=== PATIENT | female | born 1945 | race Caucasian/White ===

== ENCOUNTER 2017-12-27 13:48 | Inpatient (IN) | payer MEDICARE ==
[~2017-12-27 13:48] MED LIST: AMIODARONE 50 MG/ML 3 ML VIAL IV ONE; DEXTROSE 5% IN WATER 50 ML BAG ONE; EPINEPHrine 10 ML SYRINGE (0.1 MG/ML) ONE
[2017-12-27] MEDS ORDERED: AMIODARONE 450 MG in DEXTROSE 5% IN WATER 250 ML IV ONE ×2 (13:53)
--- NOTE | 2017-12-27 14:02 | ED ---
General Adult HPI - General Stated complaint: cardiac arrest Time Seen by Provider: 12/27/17 13:48 Source: RN notes reviewed - History of Present Illness Initial comments: This is a 64-year-old female who presents emergency department is pretty 1 patient undergoing CPR. According to EMS the patient was a witnessed arrest when first responders got there they placed an AED on her and it shocked her twice when they arrived the patient was in V. fib they shocked her one more time gave 2 epis in route and 300 of amiodarone they continued CPR and bagging the patient. Patient arrived she was in V. fib. With CPR some progress and continuing to bag the patient. No other history is available this time. - Related Data Home Medications Medication Instructions Recorded Confirmed No Known Home Medications 12/27/17 12/27/17 Allergies Allergy/AdvReac Type Severity Reaction Status Date / Time No Known Allergies Allergy Unverified 12/27/17 14:32 Review of Systems ROS Statement: Those systems with pertinent positive or pertinent negative responses have been documented in the HPI. ROS Other: All systems not noted in ROS Statement are negative. General Exam - General Exam Comments Initial Comments: GENERAL: Patient is well-developed and well-nourished. She is unresponsive to verbal or painful stimuli CPR is in progress the patient is being bagged currently ENT: Neck is soft and supple. No significant lymphadenopathy is noted. Oropharynx is clear. Moist mucous membranes. EYES: The sclera were anicteric and conjunctiva were pink and moist. PULMONARY: Unlabored respirations. Good breath sounds bilaterally. No audible rales rhonchi or wheezing was noted. CARDIOVASCULAR: She has no pulses no heart sounds currently in the fifth ABDOMEN: Soft and nontender with normal bowel sounds. SKIN: Skin is clear with no lesions or rashes and otherwise unremarkable. NEUROLOGIC: Patient is unresponsive MUSCULOSKELETAL: Patient is not moving any extremities at this time PSYCHIATRIC: Unable to assess Course Vital Signs 12/27/17 12/27/17 12/27/17 13:59 14:04 14:09 Temperature Pulse Rate 68 76 98 Respiratory 12 24 24 Rate Blood Pressure 96/59 104/70 122/73 O2 Sat by Pulse 99 99 98 Oximetry 12/27/17 12/27/17 12/27/17 14:14 14:17 14:29 Temperature 98.1 F Pulse Rate 88 88 Respiratory 24 12 Rate Blood Pressure 126/74 118/59 O2 Sat by Pulse 99 98 Oximetry 12/27/17 14:30 Temperature Pulse Rate 87 Respiratory 12 Rate Blood Pressure 126/74 O2 Sat by Pulse 98 Oximetry Procedures - Intubation Time Out Performed: Yes Laryngoscope: Song Size: 3 ET Tube Size: 8 ET Tube Uncuffed: No Tube Secured Location: teeth Tube Placement Confirmation: visualized tube passing through cords, equal breath sounds bilaterally, no breath sounds over epigastrium, confirmation by capnometry Patient Tolerated Procedure: well Intubation Complications: none Medical Decision Making - Medical Decision Making EKG shows a wide QRS complex rhythm no P waves are noted at a rate of 105 bpm QRS is under an 80 QT interval 464 QTC is 613. There is significant elevation in that ST segment in precordial leads V1 through V3 I spoke with Dr. Thorpe and he wanted the cath team called in immediately and will be down to see the patient immediately Chest x-ray shows ET tube in good placement. Patient was taken up to the cardiac cath. - Lab Data Result diagrams: 12/27/17 13:54 12/27/17 13:54 Lab Results 12/27/17 12/27/17 12/27/17 Range/Units 13:54 13:54 13:54 WBC 7.1 (3.8-10.6) k/uL RBC 4.37 (3.80-5.40) m/uL Hgb 13.3 (11.4-16.0) gm/dL Hct 44.5 (34.0-46.0) % MCV 101.8 H (80.0-100.0) fL MCH 30.4 (25.0-35.0) pg MCHC 29.8 L (31.0-37.0) g/dL RDW 12.6 (11.5-15.5) % Plt Count 129 L (150-450) k/uL Neutrophils % (Manual) 21 % Lymphocytes % (Manual) 75 % Monocytes % (Manual) 3 % Eosinophils % (Manual) 1 % Neutrophils # (Manual) 1.49 (1.3-7.7) k/uL Lymphocytes # (Manual) 5.33 H (1.0-4.8) k/uL Monocytes # (Manual) 0.21 (0-1.0) k/uL Eosinophils # (Manual) 0.07 (0-0.7) k/uL Nucleated RBCs 0 (0-0) /100 WBC Manual Slide Review Performed Hypochromasia Marked Macrocytosis Slight PT (9.0-12.0) sec INR (<1.2) APTT (22.0-30.0) sec Sample Site ABG pH (7.35-7.45) ABG pCO2 (35-45) mmHg ABG pO2 (83-108) mmHg ABG HCO3 (21-25) mmol/L ABG Total CO2 (19-24) mmol/L ABG O2 Saturation (94-97) % ABG Base Excess mmol/L Haris Test FiO2 % Sodium 141 (137-145) mmol/L Potassium 3.4 L (3.5-5.1) mmol/L Chloride 110 H (98-107) mmol/L Carbon Dioxide 17 L (22-30) mmol/L Anion Gap 14 mmol/L BUN 12 (7-17) mg/dL Creatinine 0.80 (0.52-1.04) mg/dL Est GFR (CKD-EPI)AfAm 86 (>60 ml/min/1.73 sqM) Est GFR (CKD-EPI)NonAf 75 (>60 ml/min/1.73 sqM) Glucose 245 H (74-99) mg/dL POC Glucose (mg/dL) (75-99) mg/dL POC Glu [employer] ID Calcium 8.5 (8.4-10.2) mg/dL Magnesium 2.3 (1.6-2.3) mg/dL Total Bilirubin 0.7 (0.2-1.3) mg/dL AST 119 H (14-36) U/L ALT 139 H (9-52) U/L Alkaline Phosphatase 47 (38-126) U/L Total Creatine Kinase 45 (30-135) U/L CK-MB (CK-2) 1.1 (0.0-2.4) ng/mL CK-MB (CK-2) Rel Index 2.4 Troponin I 0.028 (0.000-0.034) ng/mL Total Protein 5.6 L (6.3-8.2) g/dL Albumin 3.2 L (3.5-5.0) g/dL 12/27/17 12/27/17 12/27/17 Range/Units 13:54 14:19 14:21 WBC (3.8-10.6) k/uL RBC (3.80-5.40) m/uL Hgb (11.4-16.0) gm/dL Hct (34.0-46.0) % MCV (80.0-100.0) fL MCH (25.0-35.0) pg MCHC (31.0-37.0) g/dL RDW (11.5-15.5) % Plt Count (150-450) k/uL Neutrophils % (Manual) % Lymphocytes % (Manual) % Monocytes % (Manual) % Eosinophils % (Manual) % Neutrophils # (Manual) (1.3-7.7) k/uL Lymphocytes # (Manual) (1.0-4.8) k/uL Monocytes # (Manual) (0-1.0) k/uL Eosinophils # (Manual) (0-0.7) k/uL Nucleated RBCs (0-0) /100 WBC Manual Slide Review Hypochromasia Macrocytosis PT 10.7 (9.0-12.0) sec INR 1.1 (<1.2) APTT 26.5 (22.0-30.0) sec Sample Site RT RADIAL ABG pH 7.18 L* (7.35-7.45) ABG pCO2 44 (35-45) mmHg ABG pO2 342 H (83-108) mmHg ABG HCO3 16 L (21-25) mmol/L ABG Total CO2 18 L (19-24) mmol/L ABG O2 Saturation 99.9 H (94-97) % ABG Base Excess -11.9 mmol/L Haris Test Yes FiO2 100 % Sodium (137-145) mmol/L Potassium (3.5-5.1) mmol/L Chloride (98-107) mmol/L Carbon Dioxide (22-30) mmol/L Anion Gap mmol/L BUN (7-17) mg/dL Creatinine (0.52-1.04) mg/dL Est GFR (CKD-EPI)AfAm (>60 ml/min/1.73 sqM) Est GFR (CKD-EPI)NonAf (>60 ml/min/1.73 sqM) Glucose (74-99) mg/dL POC Glucose (mg/dL) 224 H (75-99) mg/dL POC Glu [employer] ID Chen, Mikala Calcium (8.4-10.2) mg/dL Magnesium (1.6-2.3) mg/dL Total Bilirubin (0.2-1.3) mg/dL AST (14-36) U/L ALT (9-52) U/L Alkaline Phosphatase (38-126) U/L Total Creatine Kinase (30-135) U/L CK-MB (CK-2) (0.0-2.4) ng/mL CK-MB (CK-2) Rel Index Troponin I (0.000-0.034) ng/mL Total Protein (6.3-8.2) g/dL Albumin (3.5-5.0) g/dL Critical Care Time Critical Care Time: Yes Total Critical Care Time: 35 Disposition Clinical Impression: Cardiac arrest, Ventricular fibrillation Disposition: ADMITTED IP TO THIS [facility] Time of Disposition: 14:47
[2017-12-27] MEDS ORDERED: ASPIRIN 300 MG SUPP RECTAL STA (14:13)
[2017-12-27 14:18] LABS: HCT 44.5 % (34.0-46.0); HGB 13.3 gm/dL (11.4-16.0); Hypochromasia Marked; MCH 30.4 pg (25.0-35.0); MCHC 29.8 g/dL (31.0-37.0); MCV 101.8 fL (80.0-100.0); Macrocytosis Slight; Mean Platelet Volume 7.8; Platelet Count 129 k/uL (150-450); RBC 4.37 m/uL (3.80-5.40); RDW 12.6 % (11.5-15.5); WBC 7.1 k/uL (3.8-10.6)
[2017-12-27 14:25] LABS: INR 1.1 (<1.2); Partial Thromboplastin Time 26.5 sec (22.0-30.0); Prothrombin Time 10.7 sec (9.0-12.0)
--- NOTE | 2017-12-27 14:26 | XR ---
EXAMINATION TYPE: XR chest 1V portable DATE OF EXAM: 12/27/2017 HISTORY: Shortness of breath. COMPARISON: 10/27/2017 TECHNIQUE: Single view of the chest is submitted. FINDINGS: Endotracheal tube is well-positioned. Tip of the NG tube is at the GE junction and should be advanced . Demonstrated are scattered senescent parenchymal change. There is pulmonary venous congestion with upper lobe patchy infiltrate which may reflect early change s of acute pulmonary edema. The heart is enlarged. Hilar and mediastinal structures are within normal limits. Degenerative changes are seen of the dorsal spine. IMPRESSION: 1. There is pulmonary venous congestion with upper lobe patchy infiltrate which may reflect early ch anges of acute pulmonary edema. The heart is enlarged. 2. Endotracheal tube and NG tube as discussed.
[2017-12-27 14:27] LABS: Glucose,Whole Blood 224 mg/dL (75-99)
[2017-12-27 14:29] LABS: ABG Base Excess -11.9 mmol/L; ABG HCO3 16 mmol/L (21-25); ABG Oxygen Saturation 99.9 % (94-97); ABG PCO2 44 mmHg (35-45); ABG PO2 342 mmHg (83-108); ABG TCO2 18 mmol/L (19-24)
[2017-12-27 14:31] LABS: Albumin 3.2 g/dL (3.5-5.0); Calcium 8.5 mg/dL (8.4-10.2); Magnesium 2.3 mg/dL (1.6-2.3); Potassium 3.4 mmol/L (3.5-5.1); Total Bilirubin 0.7 mg/dL (0.2-1.3); Total Protein 5.6 g/dL (6.3-8.2)
[2017-12-27 14:45] LABS: Creatine Kinase MB 1.1 ng/mL (0.0-2.4); Troponin I 0.028 ng/mL (0.000-0.034)
[2017-12-27 14:47] LABS: ABG PH 7.18 (7.35-7.45)
[2017-12-27] MEDS ORDERED: LIDOCAINE 1% INJ 10MG/ML (20 ML MDV) SQ ONE (14:49)
[2017-12-27 15:00] LABS: Eosinophils # (M) 0.07 k/uL (0-0.7); Lymphocytes # (M) 5.33 k/uL (1.0-4.8); Monocytes # (M) 0.21 k/uL (0-1.0); Neutrophils # (M) 1.49 k/uL (1.3-7.7); Neutrophils % (M) 21 %; Nucleated Red Blood Cells 0 /100 WBC (0-0); Total Cells Counted 100
[2017-12-27] MEDS ORDERED: IOPAMIDOL-370 125ML BTL INJ ONE (15:07)
[2017-12-27] MEDS ORDERED: IOPAMIDOL-370 50ML BTL INJ ONE (15:08)
[2017-12-27] MEDS ORDERED: NITROGLYCERIN SL TABS 0.4 MG TAB SUBLINGUAL PRN (15:10)
[2017-12-27] MEDS ORDERED: SODIUM CHLORIDE 0.9% 500 ML IV STA (15:10)
[2017-12-27] MEDS ORDERED: POTASSIUM CHLORIDE 20 MEQ in WATER FOR INJECTION 1 100ML.BAG IVPB STA (15:18)
[2017-12-27] MEDS ORDERED: IV FLUID CONTINUATION 1,000 ML IV ONE (15:21)
--- NOTE | 2017-12-27 15:30 | P.CRDCN ---
History of Present Illness Consult date: 12/27/17 History of present illness: This is a 72-year-old female was brought to the emergency room after a witnessed cardiac arrest. She was walking with her and apparently she collapsed. Paramedics were called who initiated CPR. Initially patient was asystolic and subsequently developed ventricular fibrillation requiring shocks. In the emergency room patient had another bout of V. fib requiring shock. Subsequently she was intubated. Her EKG showed evidence of left bundle-branch block pattern. It was advised her that patient have cardiac catheterization to rule out acute myocardial infarction. Patient was brought to the lab intubated and sedated. The time of my examination patient is unresponsive. Pupils are normal and symptoms sluggish and reactive. Patient is had some twitchy movements. Lab work showed normal hemoglobin. Potassium was low at 3.4. ABG showed acidosis. Chest x-ray showed a possible pulmonary edema versus pneumonia Review of Systems Not obtained Past Medical History Past Medical History: Unable to Obtain History of Any Multi-Drug Resistant Organisms: Unobtainable Past Surgical History: Unable to Obtain Past Psychological History: Unable to Obtain Smoking Status: Unknown if ever smoked Past Alcohol Use History: Unable to Obtain Past Drug Use History: None Reported Medications and Allergies Home Medications Medication Instructions Recorded Confirmed Type No Known Home Medications 12/27/17 12/27/17 History Allergies Allergy/AdvReac Type Severity Reaction Status Date / Time No Known Allergies Allergy Unverified 12/27/17 14:32 Physical Exam Vitals: Vital Signs Temp Pulse Resp BP Pulse Ox 12/27/17 14:30 87 12 126/74 98 12/27/17 14:29 88 12 118/59 98 12/27/17 14:17 98.1 F 12/27/17 14:14 88 24 126/74 99 12/27/17 14:09 98 24 122/73 98 12/27/17 14:04 76 24 104/70 99 12/27/17 13:59 68 12 96/59 99 Intake and Output 12/27/17 12/27/17 12/27/17 06:59 14:59 22:59 Intake Total 100 Balance 100 Intake: IV 100 Other: Weight 95.254 kg Patient is intubated. Not responsive. Pupils are normal with sluggish reaction. Neck is supple with mildly engorged veins. Heart: Distant heart sounds. No Sigmund murmurs appreciated. Lungs: Diminished breath sounds with some rhonchi Abdomen: Soft. Extremities: No cyanosis, clubbing or edema Results 12/27/17 13:54 12/27/17 13:54 Cardiac Enzymes 12/27/17 12/27/17 Range/Units 13:54 13:54 AST 119 H (14-36) U/L CK-MB (CK-2) 1.1 (0.0-2.4) ng/mL Troponin I 0.028 (0.000-0.034) ng/mL Coagulation 12/27/17 Range/Units 13:54 PT 10.7 (9.0-12.0) sec APTT 26.5 (22.0-30.0) sec CBC 12/27/17 Range/Units 13:54 WBC 7.1 (3.8-10.6) k/uL RBC 4.37 (3.80-5.40) m/uL Hgb 13.3 (11.4-16.0) gm/dL Hct 44.5 (34.0-46.0) % Plt Count 129 L (150-450) k/uL Comprehensive Metabolic Panel 12/27/17 Range/Units 13:54 Sodium 141 (137-145) mmol/L Potassium 3.4 L (3.5-5.1) mmol/L Chloride 110 H (98-107) mmol/L Carbon Dioxide 17 L (22-30) mmol/L BUN 12 (7-17) mg/dL Creatinine 0.80 (0.52-1.04) mg/dL Glucose 245 H (74-99) mg/dL Calcium 8.5 (8.4-10.2) mg/dL AST 119 H (14-36) U/L ALT 139 H (9-52) U/L Alkaline Phosphatase 47 (38-126) U/L Total Protein 5.6 L (6.3-8.2) g/dL Albumin 3.2 L (3.5-5.0) g/dL Current Medications Generic Name Dose Route Start Last Admin Trade Name Freq PRN Reason Stop Dose Admin Amiodarone HCl 450 mg/ 259 mls @ 34.53 mls/hr 12/27/17 13:53 12/27/17 14:13 Dextrose/Water IV 12/27/17 21:23 1 mg/min .Q7H31M ONE 34.53 mls/hr Administration 1 MG/MIN Sodium Chloride 500 mls @ 50 mls/hr 12/27/17 15:10 Saline 0.9% IV 12/28/17 01:09 .Q10H STA Magnesium Sulfate/Dextrose 1 100 mls @ 100 mls/hr 12/27/17 15:30 gm/ IV Solution IVPB 12/27/17 17:29 Q1H JUAN C Potassium Chloride 20 meq/ IV 100 mls @ 50 mls/hr 12/27/17 15:18 Solution IVPB 12/27/17 17:17 ONCE STA Nitroglycerin 0.4 mg 12/27/17 15:10 Nitrostat SUBLINGUAL Q5M PRN Chest Pain Intake and Output 12/27/17 12/27/17 12/27/17 06:59 14:59 22:59 Intake Total 100 Balance 100 Intake: IV 100 Other: Weight 95.254 kg Patient Weight 12/28/17 06:59 Weight 95.254 kg 12/27/17 13:54 12/27/17 13:54 EKG Interpretations (text) Sinus rhythm with left bundle branch block Assessment and Plan (1) Cardiomyopathy Current Visit: Yes Status: Acute Code(s): I42.9 - CARDIOMYOPATHY, UNSPECIFIED SNOMED Code(s): 89688770 (2) Cardiac arrest Current Visit: Yes Status: Acute Code(s): I46.9 - CARDIAC ARREST, CAUSE UNSPECIFIED SNOMED Code(s): 765412648 (3) Ventricular fibrillation Current Visit: Yes Status: Acute Code(s): I49.01 - VENTRICULAR FIBRILLATION SNOMED Code(s): 28526128 (4) Left bundle branch block Current Visit: Yes Status: Acute Code(s): I44.7 - LEFT BUNDLE-BRANCH BLOCK, UNSPECIFIED SNOMED Code(s): 41327658 Plan: Patient will be evaluated with cardiac catheterization. Meanwhile we'll continue with IV amiodarone. We'll give her magnesium and potassium supplement
--- NOTE | 2017-12-27 15:33 | P.CARDCATH ---
Date of Procedure: 12/27/17 Preoperative Diagnosis: Cardiac arrest, ventricular fibrillation Postoperative Diagnosis: Normal coronary arteries, cardiomyopathy Procedure(s) Performed: Left heart catheterization with left ventriculography Description of Procedure: HISTORY: This is a 72-year-old female was brought to the emergency room with witnessed cardiac arrest and ventricular fibrillation. EKG showed left bundle- branch block pattern. CONSENT:I have discussed the risks, benefits and alternative therapies for the above-mentioned procedure and for both sedation/analgesia as well as necessary blood product administration, if indicated, as they pertain to this patient. The patient has indicated understanding and acceptance of the risks and procedures discussed. PROCEDURE: Patient was brought to the lab in a fasting state. Patient was given some IV sedation. The right groin is infiltrated with lidocaine and right femoral artery was entered using Seldinger technique. A 6-Armenian catheter was left in place and selective coronary arteriography and left ventriculography was performed. Patient tolerated the procedure well. Femoral angiogram was performed and Angio-Seal was applied for hemostasis. No immediate complications were noted and patient was transferred to [facility] in a stable condition Conscious Sedation: Versed 0mg Fentanyl 0g Duration 17minutes HEMODYNAMICS: SELECTIVE CORONARY ARTERIOGRAPHY: LEFT MAIN: Normal length and patent without any disease THE LEFT ANTERIOR DESCENDING CORONARY ARTERY: Good caliber vessel free of any occlusive disease THE LEFT CIRCUMFLEX AND IS CORONARY ARTERY:. Good caliber vessel and codominant. Free of occlusive disease THE RIGHT CORONARY ARTERY:. Codominant vessel free of occlusive disease. Large in caliber LEFT VENTRICULOGRAPHY: Showed dilated left ventricle with a severe generalized hypokinesia. His ejection fraction is 25-30% FINAL IMPRESSION: Nonischemic cardio myopathy. Cardiac arrest. Ventricular fibrillation PLAN: Continue with IV amiodarone. Supplement with potassium and magnesium. Initiate beta blockers and also MANUEL inhibitor along with Aldactone PROGNOSIS: poor
[2017-12-27 15:54] LABS: Glucose,Whole Blood 146 mg/dL (75-99)
[2017-12-27] MEDS ORDERED: Potassium Replacement Protocol 1 EACH MISC MISCELLANE PRN (15:58)
--- NOTE | 2017-12-27 16:34 | P.CNPUL ---
History of Present Illness Consult date: 12/27/17 Requesting physician: Angelica Paul Reason for consult: other (Acute respiratory failure secondary to cardiac arrest ) Chief complaint: Cardiac arrest, witnessed History of present illness: This is a 72-year-old female brought into the emergency room by EMS, patient was walking with her , and she had a sudden cardiac arrest, patient collapsed. EMS noted ventricular fibrillation on arrival, down time is over 25 minutes. Patient was brought into the ER, and her EKG showed a left bundle branch block pattern. Seen by cardiology on consultation, and she underwent immediate cardiac catheterization. Patient was found to have normal coronary circulation, but poor LV function, ejection fraction of 20-30%. Transferred to the ICU, on mechanical ventilation, unresponsive, pupils are pinpoint, CT of the brain is pending, neurologic consultation is pending. Patient is hemodynamically stable, she is in normal sinus rhythm, and she is not requiring any pressors at this point. However she is on amiodarone as recommended by cardiology. Ventilator settings were reviewed and adjusted, cut down her FiO2 to 50%, she is on tidal volume of 450. PEEP of 5. ABG earlier today showed a pO2 of 342 pCO2 of 44 pH of 7.18. Another ABG is pending. CBC is relatively normal. Electrolytes were noted to be relatively normal however the bicarb is 17 patient has mild anion gap metabolic acidosis with anion gap of 14. Troponin was noted to be at 0.028. Renal profile is normal with a BUN of 12 and creatinine of 0.80. No family members available at bedside. Chart was reviewed chest x-ray was ordered however she had an earlier chest x-ray when she was intubated showing pulmonary vascular congestion, and upper lobe patchy infiltrate questionable pulmonary edema or true infiltrate Review of Systems ROS unobtainable: due to endotracheal tube Past Medical History Past Medical History: Unable to Obtain History of Any Multi-Drug Resistant Organisms: Unobtainable Past Surgical History: Unable to Obtain Past Psychological History: Unable to Obtain Smoking Status: Unknown if ever smoked Past Alcohol Use History: Unable to Obtain Past Drug Use History: None Reported Medications and Allergies Home Medications Medication Instructions Recorded Confirmed Type No Known Home Medications 12/27/17 12/27/17 History Allergies Allergy/AdvReac Type Severity Reaction Status Date / Time No Known Allergies Allergy Unverified 12/27/17 14:32 Physical Exam Vitals: Vital Signs Temp Pulse Resp BP Pulse Ox 12/27/17 14:30 87 12 126/74 98 12/27/17 14:29 88 12 118/59 98 12/27/17 14:17 98.1 F 12/27/17 14:14 88 24 126/74 99 12/27/17 14:09 98 24 122/73 98 12/27/17 14:04 76 24 104/70 99 12/27/17 13:59 68 12 96/59 99 Intake and Output 12/27/17 12/27/17 12/27/17 06:59 14:59 22:59 Intake Total 100 Balance 100 Intake: IV 100 Other: Weight 95.254 kg Physical Exam revealed a 72-year-old female, obese, on mechanical ventilation, unresponsive to any stimuli. Pupils are pinpoint. Head: Atraumatic, normocephalic, endotracheal tube is intact, orogastric tube is intact. HEENT:[Neck is supple.] [No neck masses.] [No thyromegaly.] [No JVD.] Pupils are pinpoint, no icterus. Chest: [Crackles and rhonchi noted bilaterally. Symmetrical chest expansion bilaterally.] Cardiac Exam: [Normal S1 and S2, no S3 gallop, no murmur.] Abdomen: [Soft, nontender, no megaly, no rebound, no guarding, normal bowel sounds.] Extremities: [No clubbing, no edema, no cyanosis.] Neurological Exam: Unresponsive to any stimuli. Pupils are pinpoint. Lymphatics: No lymphadenopathy. Psychiatric: Cannot be assessed. Results - Laboratory Findings CBC and BMP: 12/27/17 13:54 12/27/17 13:54 ABG ABG pH 7.18 (7.35-7.45) L* 12/27/17 14:19 ABG pCO2 44 mmHg (35-45) 12/27/17 14:19 ABG pO2 342 mmHg (83-108) H 12/27/17 14:19 ABG O2 Saturation 99.9 % (94-97) H 12/27/17 14:19 PT/INR, D-dimer PT 10.7 sec (9.0-12.0) 12/27/17 13:54 INR 1.1 (<1.2) 12/27/17 13:54 Abnormal lab findings: Abnormal Labs 12/27/17 12/27/17 12/27/17 13:54 13:54 14:19 MCV 101.8 H MCHC 29.8 L Plt Count 129 L Lymphocytes # (Manual) 5.33 H ABG pH 7.18 L* ABG pO2 342 H ABG HCO3 16 L ABG Total CO2 18 L ABG O2 Saturation 99.9 H Potassium 3.4 L Chloride 110 H Carbon Dioxide 17 L Glucose 245 H POC Glucose (mg/dL) AST 119 H ALT 139 H Total Protein 5.6 L Albumin 3.2 L 12/27/17 12/27/17 14:21 15:53 MCV MCHC Plt Count Lymphocytes # (Manual) ABG pH ABG pO2 ABG HCO3 ABG Total CO2 ABG O2 Saturation Potassium Chloride Carbon Dioxide Glucose POC Glucose (mg/dL) 224 H 146 H AST ALT Total Protein Albumin - Diagnostic Findings Chest x-ray: image reviewed (Evidence of pulmonary venous congestion.) Assessment and Plan Assessment: Impression: 1 acute hypoxic respiratory failure secondary to cardiac arrest, most likely secondary to cardiac arrhythmia, ventricular fibrillation. 2 cardiac arrest 3 nonischemic cardiomyopathy as noted on her cardiac workup. 4 suspect anoxic brain injury, patient had prolonged downtime during CPR and resuscitation. 5 acute anion gap metabolic acidosis secondary to cardiogenic shock. Recommendation: Continue present supportive care measures. Continue GI and DVT prophylaxis. Consider starting feeding in a.m. Initiated neurological consultation. Monitor neurological status hourly. CT of the brain is pending. We will empirically placed on antibiotics for potential aspiration. We'll continue to follow closely. Prognosis is extremely poor and guarded. Time with Patient: Greater than 30
--- NOTE | 2017-12-27 16:37 | XR ---
EXAMINATION TYPE: XR chest 1V portable DATE OF EXAM: 12/27/2017 COMPARISON: Prior chest x-ray 12/27/2017 HISTORY: Status post intubation, abnormal chest x-ray TECHNIQUE: Single frontal view of the chest is obtained. FINDINGS: Endotracheal tube and NG tube are overlying appropriate positions, the side port of the NG tube is within the distal thoracic esophagus however. The heart remains enlarged. Patient is rotated . No evident pneumothorax. There is retrocardiac density suspected. There may be some improvement in aeration as compared to prior exam. IMPRESSION: NG tube shows the distal side-port above the level of the hemidiaphragm. Report relayed to the intensive care unit staff at the time of interpretation. Rotated exam. Cardiomegaly. There may be some improvement in airspace disease.
[2017-12-27] MEDS: POTASSIUM BICARBONATE/CIT AC 20 MEQ TABLET.EFF NG-TUBE SCH ×2 (17:03→18:11)
[2017-12-27 17:07] LABS: ABG Base Excess -5.7 mmol/L; ABG HCO3 21 mmol/L (21-25); ABG Oxygen Saturation 98.2 % (94-97); ABG PCO2 43 mmHg (35-45); ABG PO2 109 mmHg (83-108); ABG TCO2 22 mmol/L (19-24)
[2017-12-27] MEDS: ENOXAPARIN 40 MG/0.4 ML SYRINGE SQ SCH (17:10)
[2017-12-27] MEDS: PANTOPRAZOLE 40 MG/10 ML VIAL IVP SCH (17:10)
--- NOTE | 2017-12-27 17:15 | OP ---
OPERATIVE REPORT PROCEDURE: Placement of a left radial arterial line. PREOPERATIVE DIAGNOSIS: Acute cardiac arrest and respiratory failure. POSTOPERATIVE DIAGNOSIS: Acute cardiac arrest and respiratory failure. ANESTHESIA: None deployed. PROCEDURE: Patient was placed in a supine position. The left wrist was prepared in a sterile fashion and drapes were applied. The left radial artery was palpated easily, cannulated easily, and a guidewire was placed. A radial Cook's catheter was placed over the guidewire, and the guidewire was removed. Good blood flow and good waveform were noted. No evidence of any immediate complications. Line was secured using 3.0 silk sutures. MMODL / IJN: [id number] /
[2017-12-27] MEDS: PROPOFOL 1,000 MG in EMPTY BAG 1 BAG IV SCH ×2 (17:30→22:41)
--- NOTE | 2017-12-27 18:09 | CT ---
EXAMINATION TYPE: CT brain wo con DATE OF EXAM: 12/27/2017 COMPARISON: None HISTORY: Altered mental status. CT DLP: 1302 mGycm Automated exposure control for dose reduction was used. FINDINGS: Exam is limited by motion to some extent. Ventricles of normal size. There is no mass effect nor midl ine shift. There is no sign of intracranial hemorrhage. The calvarium is intact. IMPRESSION: NEGATIVE CT SCAN OF THE BRAIN.
[2017-12-27] MEDS ORDERED: ARTIFICIAL TEARS OINTMENT 3.5 GM TUBE BOTH EYES PRN (18:46)
[2017-12-27] MEDS ORDERED: BISACODYL 10 MG SUPP RECTAL PRN (18:46)
[2017-12-27] MEDS ORDERED: NALOXONE 0.4 MG/ML 1 ML VIAL IV PRN (18:46)
[2017-12-27] MEDS ORDERED: IPRATROPIUM-ALBUTEROL 3 ML NEB INHALATION PRN (18:46)
[2017-12-27] MEDS ORDERED: NOREPINEPHRINE 4 MG in SODIUM CHLORIDE 0.9% 250 ML IV SCH (19:00)
[2017-12-27] MEDS: IPRATROPIUM-ALBUTEROL 3 ML NEB INHALATION SCH ×2 (19:22→23:39)
[2017-12-27 20:16] LABS: Glucose,Whole Blood 150 mg/dL (75-99)
[2017-12-27] MEDS: MAGNESIUM SULFATE-D5W PMX 1 GM in DEXTROSE/WATER 1 100ML.BAG IVPB SCH (20:33)
[2017-12-27] MEDS: CHLORHEXIDINE GLUCONATE 15 ML CUP MUCOUS MEM SCH (20:40)
[2017-12-27] MEDS: METOPROLOL TARTRATE 5 MG/5 ML VIAL IVP SCH (20:40)
[2017-12-27] MEDS: INSULIN ASPART 100 UNIT/ML 1 ML 10 ML VIAL SQ SCH (20:41)
[2017-12-27] MEDS: PIPERACILLIN-TAZOBACTAM 3.375 GM in DEXTROSE/WATER 1 50ML.BAG IVPB SCH (20:41)
--- NOTE | 2017-12-27 21:20 | CONS ---
CONSULTATION DATE OF CONSULTATION: 12/27/2017. CHIEF COMPLAINT: Anoxic brain injury. HISTORY OF PRESENT ILLNESS: The patient is a 72-year-old, female, who was being evaluated by the neurology service per the request of Dr. Paul for anoxic brain injury. The patient had a witnessed cardiac arrest by her . According to the chart, the patient was walking with her when she suddenly collapsed to the ground. EMS was called and when they arrived to the seen, the patient was found to be in ventricular fibrillation. Down time was approximately 25 minutes. CPR was started by EMS and the patient was transferred to [facility] Emergency room. The patient was intubated. A stat CT scan of the brain was done, which showed no acute intracranial abnormalities. Her CBC was normal except for mild thrombocytopenia at 129,000. Her comprehensive metabolic profile showed hyperglycemia at 245, hypokalemia at 3.4, hepatic insufficiency with an AST of 119 and ALT of 139. Her cardiac enzymes were negative. Cardiology was consulted and the heart cath was done, which showed no significant coronary artery stenosis, but there was evidence of poor left ventricular function with an ejection fraction of 20-30 percent. The patient was admitted to the intensive care unit where she remains unresponsive on mechanical ventilation. No sedation is given at the time of my evaluation. No seizure-like activity has been described. PAST MEDICAL HISTORY: Unable to obtain. SOCIAL HISTORY: Unable to obtain. FAMILY HISTORY: Unable to obtain. HOME MEDICATIONS: Unknown. ALLERGIES: No known drug allergies according to the chart. REVIEW OF SYSTEMS: Unable to obtain, as the patient is unresponsive. PHYSICAL EXAM: Vital signs show a temperature of 98.1, pulse 87, respiration 12, blood pressure 126/74. GENERAL APPEARANCE: The patient is an elderly female, who is intubated and unresponsive to verbal stimuli. HEENT: Normocephalic, atraumatic, no obvious facial asymmetry is seen. Endotracheal tube is intact. Neck is supple with no masses felt. CARDIOVASCULAR: Regular rate and rhythm. ABDOMEN: Nontender nondistended. Extremities showed trace edema with no clubbing seen. Neurological exam: The patient is unresponsive to verbal stimuli. She occasionally withdraws her upper extremities to painful stimuli but on other occasions does not. Plantar reflex showed silent toes bilaterally. No ankle clonus is seen. Brainstem reflexes showed sluggish pupils bilaterally and a positive gag reflex. There is an absent oculocephalic reflex and corneal reflex. No seizure-like activity is seen. IMPRESSION: 1. Anoxic brain injury. 2. Cardiac arrest. 3. Unresponsiveness. RECOMMENDATION: The patient did have a witnessed the collapse and cardiac arrest and a down time of approximately 25 minutes was documented. She is on no sedation at this time and continues to be unresponsive. Her neurological examination is significant and there are concerns for severe anoxic brain injury. Her initial CT scan of the brain showed no acute findings. An EEG will be ordered. We will look for any significant neurological improvement over the next 24-48 hours, although given her advanced age and down time, there is only a slight chance of this occurring. Continue supportive care. Continue neuro checks. I will continue to follow with you. Further recommendations to follow. Thank you for allowing me to participate in the care of your patient. If you have any questions, please feel free to contact me. Please send a copy of this dictation to Dr. Paul. JARRELL / TENZIN: [id number] /
[2017-12-27] MEDS ORDERED: AMIODARONE 450 MG in DEXTROSE 5% IN WATER 250 ML IV SCH ×2 (22:15)
[2017-12-27] MEDS ORDERED: POTASSIUM BICARBONATE/CIT AC 20 MEQ TABLET.EFF NG-TUBE SCH (23:00)
[2017-12-28 00:07] LABS: Glucose,Whole Blood 132 mg/dL (75-99)
[2017-12-28] MEDS: INSULIN ASPART 100 UNIT/ML 1 ML 10 ML VIAL SQ SCH ×5 (00:10→18:19)
[2017-12-28 01:11] LABS: Appearance,Urine Turbid (Clear); Bilirubin,Urine Negative (Negative); Blood,Urine Small (Negative); Color,Urine Yellow; Glucose,Urine (UA) Negative (Negative); Ketones,Urine Negative (Negative); Leukocyte Esterase,Urine Trace (Negative); Mucus,Urine Rare /hpf; Nitrite,Urine Negative (Negative); PH, Urine 5.5 (5.0-8.0); Protein,Urine Negative (Negative); RBC,Urine 24 /hpf (0-5); Specific Gravity,Urine 1.033 (1.001-1.035); Uric Acid Crystals,Urine Many /hpf; Urobilinogen,Urine <2.0 mg/dL (<2.0); WBC,Urine 9 /hpf (0-5)
[2017-12-28] MEDS: IPRATROPIUM-ALBUTEROL 3 ML NEB INHALATION SCH ×6 (03:20→23:32)
[2017-12-28 04:44] LABS: Glucose,Whole Blood 137 mg/dL (75-99)
[2017-12-28] MEDS: PROPOFOL 1,000 MG in EMPTY BAG 1 BAG IV SCH (04:49)
[2017-12-28 04:56] LABS: Mean Platelet Volume 7.3; RDW 12.8 % (11.5-15.5)
[2017-12-28 05:03] LABS: Basophils % (A) 0 %; Eosinophils % (A) 0 %; HCT 39.8 % (34.0-46.0); HGB 12.8 gm/dL (11.4-16.0); Lymphocytes # (A) 0.7 k/uL (1.0-4.8); Lymphocytes % (A) 8 %; MCH 30.2 pg (25.0-35.0); Monocytes # (A) 0.5 k/uL (0-1.0); Monocytes % (A) 6 %; Neutrophils # (A) 7.6 k/uL (1.3-7.7); Neutrophils % (A) 85 %; Platelet Count 124 k/uL (150-450); RBC 4.22 m/uL (3.80-5.40); WBC 8.9 k/uL (3.8-10.6)
[2017-12-28 05:08] LABS: MCV 94.4 fL (80.0-100.0)
[2017-12-28 05:10] LABS: Anion Gap 7 mmol/L; Blood Urea Nitrogen 18 mg/dL (7-17); Calcium 8.7 mg/dL (8.4-10.2); Carbon Dioxide 21 mmol/L (22-30); Chloride 109 mmol/L (98-107); Glucose 134 mg/dL (74-99); Magnesium 1.8 mg/dL (1.6-2.3); Phosphorus 3.8 mg/dL (2.5-4.5); Potassium 3.7 mmol/L (3.5-5.1); Sodium 137 mmol/L (137-145)
[2017-12-28] MEDS ORDERED: POTASSIUM BICARBONATE/CIT AC 20 MEQ TABLET.EFF NG-TUBE SCH (07:00)
[2017-12-28] MEDS: MAGNESIUM SULFATE-D5W PMX 1 GM in DEXTROSE/WATER 1 100ML.BAG IVPB SCH ×2 (07:16→09:02)
[2017-12-28 07:20] LABS: ABG Base Excess -2.1 mmol/L; ABG HCO3 22 mmol/L (21-25); ABG Oxygen Saturation 96.5 % (94-97); ABG PCO2 31 mmHg (35-45); ABG PH 7.45 (7.35-7.45); ABG PO2 77 mmHg (83-108); ABG TCO2 23 mmol/L (19-24)
[2017-12-28 08:06] LABS: Glucose,Whole Blood 130 mg/dL (75-99)
--- NOTE | 2017-12-28 08:48 | XR ---
EXAMINATION TYPE: XR chest 1V portable DATE OF EXAM: 12/28/2017 COMPARISON: 12/27/2017 HISTORY: ET tube TECHNIQUE: Single frontal view of the chest is obtained. FINDINGS: ET is stable. NG tube is been advanced with sidehole overlying the gastric body or fundus. Subsegmental consolidation in both lung bases with limited inspiration. Heart remains enlarged. No p neumothorax. IMPRESSION: 1. NG tube is been advanced with sidehole overlying the gastric fundus. 2. Persistent bilateral subsegmental atelectasis or infiltrate.
[2017-12-28] MEDS: PANTOPRAZOLE 40 MG/10 ML VIAL IVP SCH (09:03)
[2017-12-28] MEDS: ENOXAPARIN 40 MG/0.4 ML SYRINGE SQ SCH (09:03)
[2017-12-28] MEDS: CHLORHEXIDINE GLUCONATE 15 ML CUP MUCOUS MEM SCH ×2 (09:03→21:21)
[2017-12-28] MEDS: METOPROLOL TARTRATE 5 MG/5 ML VIAL IVP SCH (09:03)
[2017-12-28] MEDS: PIPERACILLIN-TAZOBACTAM 3.375 GM in DEXTROSE/WATER 1 50ML.BAG IVPB SCH ×2 (09:42→17:24)
[2017-12-28 09:47] LABS: ALT 168 U/L (9-52); AST 125 U/L (14-36)
--- NOTE | 2017-12-28 10:10 | P.PN ---
Subjective Progress Note Date: 12/28/17 This is a 72-year-old female who was admitted following witnessed cardiac arrest. Patient required shocks for ventricular fibrillation. Cardiac catheterization revealed normal coronary arteries with severely impaired LV function. Suggestive of cardiomyopathy. Patient has been maintained on IV amiodarone. Hasn't had any cardiac arrhythmias of significance since admission. Patient's urine output has been fair. Renal functions are stable. Hemoglobin is stable. Liver and the vessels are slightly elevated on admission. Repeat testing is being done. It appears that patient may have had a long down time. Severe anoxic brain injury suspected. Neurology is following. Pupils are slightly reactive. No purposeful movements. Patient is maintaining sinus rhythm. Patient is going to have an EEG and further neurological evaluation. Meanwhile we will continue with by mouth amiodarone and also beta trina. I will add MANUEL inhibitor and also Aldactone. Prognosis is poor Objective - Vital Signs Vital signs: Vital Signs Temp 99.1 F 12/28/17 08:00 Pulse 84 12/28/17 09:15 Resp 30 H 12/28/17 09:15 BP 120/55 12/27/17 17:15 Pulse Ox 93 L 12/28/17 09:15 Intake & Output 12/27/17 12/28/17 12/28/17 18:59 06:59 18:59 Intake Total 450.273 5650.907 512.767 Output Total 425 890 175 Balance -37.430 207.907 337.767 Weight 95.254 kg 96.2 kg Intake: IV 259 891.2 409.1 Amiodarone 450 mg In 200.2 50.1 Dextrose 5% in Water 250 ml @ 0.5 MG/MIN 16.66 mls /hr IV .Q15H1M [facility] Rx#: [id number] Magnesium Sulfate-D5w Pmx 200 1 gm In Dextrose/Water 1 100ml.bag @ 100 mls/hr IVPB Q1H [facility] Rx#: [id number] Normal Saline 150 100 Piperacillin-Tazobactam 3 75.0 .375 gm In Dextrose/Water 1 50ml.bag @ 12.5 mls/hr IVPB Q12HR [facility] C Rx#: [id number] Pressure Bag 9 36 9 Sodium Chloride 0.9% 500 480 150 ml @ 50 mls/hr IV .Q10H STA Rx#:[id number] Intake, IV Titration 8.570 176.707 73.667 Amount Propofol 1,000 mg In 8.570 176.707 73.667 Empty Bag 1 bag @ Titrate IV .Q0M [facility] Rx#: [id number] Other 120 30 30 Output: Gastric Drainage 150 Urine 425 740 175 Other: Voiding Method Indwelling Catheter Indwelling Catheter ABP, PAP, CO, CI - Last Documented Arterial Blood Pressure 163/70 - Exam GENERAL EXAM: Patient is intubated and unresponsive HEENT: Pupils are sluggishly reactive NECK: No masses, no nuchal rigidity. CHEST: No chest wall deformity. LUNGS: Expiratory rhonchi HEART: S1 and S2 normal, distant heart sounds ABDOMEN: No hepatosplenomegaly, normal bowel sounds, no guarding or rigidity. SKIN: No rashes CENTRAL NERVOUS SYSTEM: Unresponsive EXTREMITIES: No cyanosis, clubbing or edema. - Labs CBC & Chem 7: 12/28/17 04:40 12/28/17 09:25 Labs: Abnormal Lab Results - Last 24 Hours (Table) 12/27/17 12/27/17 12/27/17 Range/Units 13:54 13:54 14:19 MCV 101.8 H (80.0-100.0) fL MCHC 29.8 L (31.0-37.0) g/dL Plt Count 129 L (150-450) k/uL Lymphocytes # (1.0-4.8) k/uL Lymphocytes # (Manual) 5.33 H (1.0-4.8) k/uL ABG pH 7.18 L* (7.35-7.45) ABG pCO2 (35-45) mmHg ABG pO2 342 H (83-108) mmHg ABG HCO3 16 L (21-25) mmol/L ABG Total CO2 18 L (19-24) mmol/L ABG O2 Saturation 99.9 H (94-97) % Potassium 3.4 L (3.5-5.1) mmol/L Chloride 110 H (98-107) mmol/L Carbon Dioxide 17 L (22-30) mmol/L BUN (7-17) mg/dL Glucose 245 H (74-99) mg/dL POC Glucose (mg/dL) (75-99) mg/dL AST 119 H (14-36) U/L ALT 139 H (9-52) U/L Total Protein 5.6 L (6.3-8.2) g/dL Albumin 3.2 L (3.5-5.0) g/dL Urine Appearance (Clear) Urine Blood (Negative) Ur Leukocyte Esterase (Negative) Urine RBC (0-5) /hpf Urine WBC (0-5) /hpf Uric Acid Crystals (None) /hpf Urine Mucus (None) /hpf 12/27/17 12/27/17 12/27/17 Range/Units 14:21 15:53 16:56 MCV (80.0-100.0) fL MCHC (31.0-37.0) g/dL Plt Count (150-450) k/uL Lymphocytes # (1.0-4.8) k/uL Lymphocytes # (Manual) (1.0-4.8) k/uL ABG pH 7.30 L (7.35-7.45) ABG pCO2 (35-45) mmHg ABG pO2 109 H (83-108) mmHg ABG HCO3 (21-25) mmol/L ABG Total CO2 (19-24) mmol/L ABG O2 Saturation 98.2 H (94-97) % Potassium (3.5-5.1) mmol/L Chloride (98-107) mmol/L Carbon Dioxide (22-30) mmol/L BUN (7-17) mg/dL Glucose (74-99) mg/dL POC Glucose (mg/dL) 224 H 146 H (75-99) mg/dL AST (14-36) U/L ALT (9-52) U/L Total Protein (6.3-8.2) g/dL Albumin (3.5-5.0) g/dL Urine Appearance (Clear) Urine Blood (Negative) Ur Leukocyte Esterase (Negative) Urine RBC (0-5) /hpf Urine WBC (0-5) /hpf Uric Acid Crystals (None) /hpf Urine Mucus (None) /hpf 12/27/17 12/28/17 12/28/17 Range/Units 20:15 00:04 00:55 MCV (80.0-100.0) fL MCHC (31.0-37.0) g/dL Plt Count (150-450) k/uL Lymphocytes # (1.0-4.8) k/uL Lymphocytes # (Manual) (1.0-4.8) k/uL ABG pH (7.35-7.45) ABG pCO2 (35-45) mmHg ABG pO2 (83-108) mmHg ABG HCO3 (21-25) mmol/L ABG Total CO2 (19-24) mmol/L ABG O2 Saturation (94-97) % Potassium (3.5-5.1) mmol/L Chloride (98-107) mmol/L Carbon Dioxide (22-30) mmol/L BUN (7-17) mg/dL Glucose (74-99) mg/dL POC Glucose (mg/dL) 150 H 132 H (75-99) mg/dL AST (14-36) U/L ALT (9-52) U/L Total Protein (6.3-8.2) g/dL Albumin (3.5-5.0) g/dL Urine Appearance Turbid H (Clear) Urine Blood Small H (Negative) Ur Leukocyte Esterase Trace H (Negative) Urine RBC 24 H (0-5) /hpf Urine WBC 9 H (0-5) /hpf Uric Acid Crystals Many H (None) /hpf Urine Mucus Rare H (None) /hpf 12/28/17 12/28/17 12/28/17 Range/Units 04:40 04:40 04:42 MCV (80.0-100.0) fL MCHC (31.0-37.0) g/dL Plt Count 124 L (150-450) k/uL Lymphocytes # 0.7 L (1.0-4.8) k/uL Lymphocytes # (Manual) (1.0-4.8) k/uL ABG pH (7.35-7.45) ABG pCO2 (35-45) mmHg ABG pO2 (83-108) mmHg ABG HCO3 (21-25) mmol/L ABG Total CO2 (19-24) mmol/L ABG O2 Saturation (94-97) % Potassium (3.5-5.1) mmol/L Chloride 109 H (98-107) mmol/L Carbon Dioxide 21 L (22-30) mmol/L BUN 18 H (7-17) mg/dL Glucose 134 H (74-99) mg/dL POC Glucose (mg/dL) 137 H (75-99) mg/dL AST (14-36) U/L ALT (9-52) U/L Total Protein (6.3-8.2) g/dL Albumin (3.5-5.0) g/dL Urine Appearance (Clear) Urine Blood (Negative) Ur Leukocyte Esterase (Negative) Urine RBC (0-5) /hpf Urine WBC (0-5) /hpf Uric Acid Crystals (None) /hpf Urine Mucus (None) /hpf 12/28/17 12/28/17 12/28/17 Range/Units 07:18 08:03 09:25 MCV (80.0-100.0) fL MCHC (31.0-37.0) g/dL Plt Count (150-450) k/uL Lymphocytes # (1.0-4.8) k/uL Lymphocytes # (Manual) (1.0-4.8) k/uL ABG pH (7.35-7.45) ABG pCO2 31 L (35-45) mmHg ABG pO2 77 L (83-108) mmHg ABG HCO3 (21-25) mmol/L ABG Total CO2 (19-24) mmol/L ABG O2 Saturation (94-97) % Potassium (3.5-5.1) mmol/L Chloride (98-107) mmol/L Carbon Dioxide (22-30) mmol/L BUN (7-17) mg/dL Glucose (74-99) mg/dL POC Glucose (mg/dL) 130 H (75-99) mg/dL AST 125 H (14-36) U/L ALT 168 H (9-52) U/L Total Protein (6.3-8.2) g/dL Albumin (3.5-5.0) g/dL Urine Appearance (Clear) Urine Blood (Negative) Ur Leukocyte Esterase (Negative) Urine RBC (0-5) /hpf Urine WBC (0-5) /hpf Uric Acid Crystals (None) /hpf Urine Mucus (None) /hpf Assessment and Plan (1) Cardiomyopathy Current Visit: Yes Status: Acute Code(s): I42.9 - CARDIOMYOPATHY, UNSPECIFIED SNOMED Code(s): 05453444 (2) Cardiac arrest Current Visit: Yes Status: Acute Code(s): I46.9 - CARDIAC ARREST, CAUSE UNSPECIFIED SNOMED Code(s): 808319678 (3) Ventricular fibrillation Current Visit: Yes Status: Acute Code(s): I49.01 - VENTRICULAR FIBRILLATION SNOMED Code(s): 21638210 (4) Left bundle branch block Current Visit: Yes Status: Acute Code(s): I44.7 - LEFT BUNDLE-BRANCH BLOCK, UNSPECIFIED SNOMED Code(s): 29782875 Plan: Patient's mental status is a concern. Patient most probably has anoxic encephalopathy. Hemodynamically stable. No arrhythmias. Patient to be started on by mouth medication including amiodarone, beta trina, lisinopril and Aldactone. Prognosis is guarded
[2017-12-28] MEDS ORDERED: POTASSIUM BICARBONATE/CIT AC 20 MEQ TABLET.EFF PO ONE (10:30)
[2017-12-28] MEDS: SPIRONOLACTONE 25 MG TAB PO SCH (11:11)
[2017-12-28] MEDS: LISINOPRIL 5 MG TAB PO SCH (11:11)
[2017-12-28 11:41] LABS: Glucose,Whole Blood 130 mg/dL (75-99)
--- NOTE | 2017-12-28 12:19 | P.HPIM ---
History of Present Illness H&P Date: 12/28/17 Chief Complaint: Status post cardiac arrest Patient is a 72-year-old female without significant past medical history and has not followed with PCP for the past 40 years was brought to the hospital status post cardiac arrest and collapsed. Patient was walking with her and suddenly patient had cardiac arrest and collapsed to the ground. Patient had a time for about 20 minutes. Patient had CPR, shock and epinephrine was given on site. EMS noted ventricular fibrillation. EKG in the ER showed left bundle-branch block. Patient had as a cardiac arrest while in the ER. Patient was emergently taken to cardiac catheterization which found have normal coronaries but LV function is low with ejection fraction 20-30%. Cardiomyopathy was suspected. Patient was transferred to ICU. Currently on mechanical ventilation. Patient does not have any spontaneous movement at this time. Currently patient is undergoing EEG. CT head was done. Showed no acute intracranial process. Chest x-ray showed there is pulmonary venous congestion with upper lobe patchy infiltrate which may reflect early changes of acute pulmonary edema. The heart is enlarged otherwise. Troponin was 0.08, bicarb is 17 9 and BUN and creatinine within normal limits. Neurology, cardiology and pulmonary is following. Review of Systems Review of systems could not be apparent from the patient. Past Medical History Past Medical History: No Reported History History of Any Multi-Drug Resistant Organisms: None Reported Past Surgical History: Cholecystectomy Past Anesthesia/Blood Transfusion Reactions: No Reported Reaction Past Psychological History: No Psychological Hx Reported Smoking Status: Former smoker Past Alcohol Use History: None Reported Past Drug Use History: None Reported - Past Family History Sister(s) Family Medical History: Cancer Mother Family Medical History: Myocardial Infarction ([place]) Medications and Allergies Home Medications Medication Instructions Recorded Confirmed Type No Known Home Medications 12/27/17 12/27/17 History Allergies Allergy/AdvReac Type Severity Reaction Status Date / Time No Known Allergies Allergy Unverified 12/27/17 14:32 Physical Exam Vitals: Vital Signs Temp Pulse Resp BP Pulse Ox 12/28/17 09:15 84 30 H 93 L 12/28/17 09:00 93 28 H 97 12/28/17 08:45 88 56 H 95 12/28/17 08:30 85 23 95 12/28/17 08:15 83 32 H 96 12/28/17 08:00 99.1 F 81 24 94 L 12/28/17 07:55 82 12/28/17 07:45 82 23 97 12/28/17 07:42 82 12/28/17 07:30 86 24 97 12/28/17 07:15 74 24 94 L 12/28/17 07:00 72 18 94 L 12/28/17 06:45 77 25 H 93 L 12/28/17 06:30 82 24 94 L 12/28/17 06:15 81 24 96 12/28/17 06:00 80 26 H 97 12/28/17 05:45 73 19 97 12/28/17 05:30 72 18 96 12/28/17 05:15 71 19 96 12/28/17 05:00 73 23 94 L 12/28/17 04:45 79 25 H 94 L 12/28/17 04:30 98.5 F 80 27 H 96 12/28/17 04:15 78 23 96 12/28/17 04:00 74 19 95 12/28/17 03:45 70 21 94 L 12/28/17 03:42 74 12/28/17 03:30 73 18 95 12/28/17 03:25 78 12/28/17 03:15 74 23 94 L 12/28/17 03:00 74 23 94 L 12/28/17 02:45 74 18 95 12/28/17 02:30 73 22 96 12/28/17 02:15 74 23 96 12/28/17 02:00 74 18 95 12/28/17 01:45 77 18 95 12/28/17 01:30 77 22 95 12/28/17 01:15 76 23 95 12/28/17 01:00 76 25 H 95 12/28/17 00:45 75 25 H 95 12/28/17 00:30 99.1 F 76 25 H 95 12/28/17 00:15 74 25 H 95 12/28/17 00:00 73 25 H 94 L 12/27/17 23:54 75 12/27/17 23:45 73 18 95 12/27/17 23:42 73 12/27/17 23:30 72 24 95 12/27/17 23:15 78 22 95 12/27/17 23:00 78 19 95 12/27/17 22:45 79 18 95 12/27/17 22:37 80 23 94 L 12/27/17 22:30 80 21 94 L 12/27/17 22:15 80 23 94 L 12/27/17 22:00 80 24 94 L 12/27/17 21:45 80 24 93 L 12/27/17 21:30 78 25 H 93 L 12/27/17 21:15 77 22 92 L 12/27/17 21:00 87 22 92 L 12/27/17 20:45 84 27 H 93 L 12/27/17 20:30 84 21 96 12/27/17 20:15 84 23 95 12/27/17 20:00 97.5 F L 85 26 H 97 12/27/17 19:45 84 22 97 12/27/17 19:38 80 12/27/17 19:30 83 20 98 12/27/17 19:23 82 12/27/17 19:15 84 18 96 12/27/17 19:00 93 26 H 95 12/27/17 18:45 87 28 H 95 12/27/17 18:30 90 35 H 96 12/27/17 18:15 85 36 H 96 12/27/17 17:30 79 20 98 12/27/17 17:15 78 21 120/55 96 12/27/17 17:00 72 18 120/55 98 12/27/17 16:45 70 18 120/55 97 12/27/17 16:30 72 20 124/50 98 12/27/17 16:15 69 22 110/52 96 12/27/17 16:00 96.4 F L 69 22 114/52 99 12/27/17 15:45 69 12/27/17 15:35 95 12/27/17 14:30 87 12 126/74 98 12/27/17 14:29 88 12 118/59 98 12/27/17 14:17 98.1 F 12/27/17 14:14 88 24 126/74 99 12/27/17 14:09 98 24 122/73 98 12/27/17 14:04 76 24 104/70 99 12/27/17 13:59 68 12 96/59 99 Intake and Output 12/27/17 12/28/17 12/28/17 22:59 06:59 14:59 Intake Total 767.877 717.6 512.767 Output Total 760 555 175 Balance 7.877 162.6 337.767 Intake: IV 562.6 587.6 409.1 Amiodarone 450 mg In 66.6 133.6 50.1 Dextrose 5% in Water 250 ml @ 0.5 MG/MIN 16.66 mls /hr IV .Q15H1M [facility] Rx#: [id number] Magnesium Sulfate-D5w Pmx 200 1 gm In Dextrose/Water 1 100ml.bag @ 100 mls/hr IVPB Q1H [facility] Rx#: [id number] Normal Saline 250 Piperacillin-Tazobactam 3 25.0 50.0 .375 gm In Dextrose/Water 1 50ml.bag @ 12.5 mls/hr IVPB Q12HR [facility] Rx#: [id number] Pressure Bag 21 24 9 Sodium Chloride 0.9% 500 100 380 150 ml @ 50 mls/hr IV .Q10H [facility] Rx#:[id number] Intake, IV Titration 85.277 100 73.667 Amount Propofol 1,000 mg In 85.277 100 73.667 Empty Bag 1 bag @ Titrate IV .Q0M [facility] Rx#: [id number] Other 120 30 30 Output: Gastric Drainage 150 Urine 760 405 175 Other: Voiding Method Indwelling Catheter Indwelling Catheter Weight 95.254 kg 96.2 kg ABP, PAP, CO, CI - Last 8 Hours Arterial Blood Pressure 163/70 Arterial Blood Pressure 168/72 Arterial Blood Pressure 170/67 Arterial Blood Pressure 157/64 Arterial Blood Pressure 169/66 Arterial Blood Pressure 158/65 Arterial Blood Pressure 156/63 Arterial Blood Pressure 174/66 Arterial Blood Pressure 138/56 Arterial Blood Pressure 141/60 Arterial Blood Pressure 145/64 Arterial Blood Pressure 159/61 Arterial Blood Pressure 157/69 Arterial Blood Pressure 160/68 Arterial Blood Pressure 155/65 Arterial Blood Pressure 134/54 Arterial Blood Pressure 136/52 Arterial Blood Pressure 131/48 Arterial Blood Pressure 135/59 Arterial Blood Pressure 131/64 Arterial Blood Pressure 129/60 Arterial Blood Pressure 107/46 Arterial Blood Pressure 112/49 Arterial Blood Pressure 114/44 Arterial Blood Pressure 120/54 Arterial Blood Pressure 111/48 Arterial Blood Pressure 119/53 Arterial Blood Pressure 127/54 Arterial Blood Pressure 128/57 PHYSICAL EXAMINATION: Patient is lying in the bed comfortably, no acute distress . patient is currently sedated and intubated... HEENT: Normocephalic. Neck is supple. Pupils pinpoint. Nostrils clear. Oral cavity is moist. Ears reveal no drainage. Neck reveals no JVD, carotid bruits, or thyromegaly. CHEST EXAMINATION: Trachea is central. Symmetrical expansion. Bibasilar diminished air entry. Lung solis clear to auscultation and percussion. CARDIAC: Normal S1, S2 with no gallops. No murmurs ABDOMEN: Soft. Bowel sounds normal. No organomegaly. No abdominal bruits. Extremities: reveal no edema. No clubbing or cyanosis Neurologically. Patient is currently intubated. No gross focal neurological deficits noted Skin: No rash or skin lesions. Psychiatric: Could not be assessed Musculoskeletal: No joint swelling or deformity. Results CBC & Chem 7: 12/28/17 04:40 12/28/17 09:25 Labs: Abnormal Lab Results - Last 24 Hours (Table) 12/27/17 12/27/17 12/27/17 Range/Units 13:54 13:54 14:19 MCV 101.8 H (80.0-100.0) fL MCHC 29.8 L (31.0-37.0) g/dL Plt Count 129 L (150-450) k/uL Lymphocytes # (1.0-4.8) k/uL Lymphocytes # (Manual) 5.33 H (1.0-4.8) k/uL ABG pH 7.18 L* (7.35-7.45) ABG pCO2 (35-45) mmHg ABG pO2 342 H (83-108) mmHg ABG HCO3 16 L (21-25) mmol/L ABG Total CO2 18 L (19-24) mmol/L ABG O2 Saturation 99.9 H (94-97) % Potassium 3.4 L (3.5-5.1) mmol/L Chloride 110 H (98-107) mmol/L Carbon Dioxide 17 L (22-30) mmol/L BUN (7-17) mg/dL Glucose 245 H (74-99) mg/dL POC Glucose (mg/dL) (75-99) mg/dL AST 119 H (14-36) U/L ALT 139 H (9-52) U/L Total Protein 5.6 L (6.3-8.2) g/dL Albumin 3.2 L (3.5-5.0) g/dL Urine Appearance (Clear) Urine Blood (Negative) Ur Leukocyte Esterase (Negative) Urine RBC (0-5) /hpf Urine WBC (0-5) /hpf Uric Acid Crystals (None) /hpf Urine Mucus (None) /hpf 12/27/17 12/27/17 12/27/17 Range/Units 14:21 15:53 16:56 MCV (80.0-100.0) fL MCHC (31.0-37.0) g/dL Plt Count (150-450) k/uL Lymphocytes # (1.0-4.8) k/uL Lymphocytes # (Manual) (1.0-4.8) k/uL ABG pH 7.30 L (7.35-7.45) ABG pCO2 (35-45) mmHg ABG pO2 109 H (83-108) mmHg ABG HCO3 (21-25) mmol/L ABG Total CO2 (19-24) mmol/L ABG O2 Saturation 98.2 H (94-97) % Potassium (3.5-5.1) mmol/L Chloride (98-107) mmol/L Carbon Dioxide (22-30) mmol/L BUN (7-17) mg/dL Glucose (74-99) mg/dL POC Glucose (mg/dL) 224 H 146 H (75-99) mg/dL AST (14-36) U/L ALT (9-52) U/L Total Protein (6.3-8.2) g/dL Albumin (3.5-5.0) g/dL Urine Appearance (Clear) Urine Blood (Negative) Ur Leukocyte Esterase (Negative) Urine RBC (0-5) /hpf Urine WBC (0-5) /hpf Uric Acid Crystals (None) /hpf Urine Mucus (None) /hpf 12/27/17 12/28/17 12/28/17 Range/Units 20:15 00:04 00:55 MCV (80.0-100.0) fL MCHC (31.0-37.0) g/dL Plt Count (150-450) k/uL Lymphocytes # (1.0-4.8) k/uL Lymphocytes # (Manual) (1.0-4.8) k/uL ABG pH (7.35-7.45) ABG pCO2 (35-45) mmHg ABG pO2 (83-108) mmHg ABG HCO3 (21-25) mmol/L ABG Total CO2 (19-24) mmol/L ABG O2 Saturation (94-97) % Potassium (3.5-5.1) mmol/L Chloride (98-107) mmol/L Carbon Dioxide (22-30) mmol/L BUN (7-17) mg/dL Glucose (74-99) mg/dL POC Glucose (mg/dL) 150 H 132 H (75-99) mg/dL AST (14-36) U/L ALT (9-52) U/L Total Protein (6.3-8.2) g/dL Albumin (3.5-5.0) g/dL Urine Appearance Turbid H (Clear) Urine Blood Small H (Negative) Ur Leukocyte Esterase Trace H (Negative) Urine RBC 24 H (0-5) /hpf Urine WBC 9 H (0-5) /hpf Uric Acid Crystals Many H (None) /hpf Urine Mucus Rare H (None) /hpf 12/28/17 12/28/17 12/28/17 Range/Units 04:40 04:40 04:42 MCV (80.0-100.0) fL MCHC (31.0-37.0) g/dL Plt Count 124 L (150-450) k/uL Lymphocytes # 0.7 L (1.0-4.8) k/uL Lymphocytes # (Manual) (1.0-4.8) k/uL ABG pH (7.35-7.45) ABG pCO2 (35-45) mmHg ABG pO2 (83-108) mmHg ABG HCO3 (21-25) mmol/L ABG Total CO2 (19-24) mmol/L ABG O2 Saturation (94-97) % Potassium (3.5-5.1) mmol/L Chloride 109 H (98-107) mmol/L Carbon Dioxide 21 L (22-30) mmol/L BUN 18 H (7-17) mg/dL Glucose 134 H (74-99) mg/dL POC Glucose (mg/dL) 137 H (75-99) mg/dL AST (14-36) U/L ALT (9-52) U/L Total Protein (6.3-8.2) g/dL Albumin (3.5-5.0) g/dL Urine Appearance (Clear) Urine Blood (Negative) Ur Leukocyte Esterase (Negative) Urine RBC (0-5) /hpf Urine WBC (0-5) /hpf Uric Acid Crystals (None) /hpf Urine Mucus (None) /hpf 12/28/17 12/28/17 12/28/17 Range/Units 07:18 08:03 09:25 MCV (80.0-100.0) fL MCHC (31.0-37.0) g/dL Plt Count (150-450) k/uL Lymphocytes # (1.0-4.8) k/uL Lymphocytes # (Manual) (1.0-4.8) k/uL ABG pH (7.35-7.45) ABG pCO2 31 L (35-45) mmHg ABG pO2 77 L (83-108) mmHg ABG HCO3 (21-25) mmol/L ABG Total CO2 (19-24) mmol/L ABG O2 Saturation (94-97) % Potassium (3.5-5.1) mmol/L Chloride (98-107) mmol/L Carbon Dioxide (22-30) mmol/L BUN (7-17) mg/dL Glucose (74-99) mg/dL POC Glucose (mg/dL) 130 H (75-99) mg/dL AST 125 H (14-36) U/L ALT 168 H (9-52) U/L Total Protein (6.3-8.2) g/dL Albumin (3.5-5.0) g/dL Urine Appearance (Clear) Urine Blood (Negative) Ur Leukocyte Esterase (Negative) Urine RBC (0-5) /hpf Urine WBC (0-5) /hpf Uric Acid Crystals (None) /hpf Urine Mucus (None) /hpf Thrombosis Risk Factor Assmnt - DVT/VTE Prophylaxis DVT/VTE Prophylaxis: Pharmacologic Prophylaxis ordered - Choose All That Apply Any of the Below Risk Factors Present?: Yes Each Factor Represents 1 point: Obesity (BMI >25) Other Risk Factors: Yes Each Risk Factor Represents 2 Points: Age 61-74 years Other congenital or acquired thrombophilia - If yes, enter type in comment: No Thrombosis Risk Factor Assessment Total Risk Factor Score: 3 Thrombosis Risk Factor Assessment Level: Moderate Risk Assessment and Plan Assessment: Status post cardiac arrest with reticular fibrillation as per EMS. Acute hypoxic respiratory failure secondary to cardiac arrest Nonischemic cardiomyopathy Suspect anoxic brain injury Anion gap metabolic acidosis DVT prophylaxis Plan: Patient will be continued on telemetry monitoring. Status post cardiac catheterization with normal coronaries. Patient will be continued on amiodarone drip. Started on metoprolol and lisinopril. Patient is undergoing neurological workup including CT head and EEG. 2-D echocardiogram. Continue with empiric antibiotics. Will follow closely. Prognosis is poor. Further conditions based on the clinical course. Time with Patient: Greater than 30
[2017-12-28] MEDS ORDERED: AMIODARONE 200 MG TAB PO STA (12:22)
--- NOTE | 2017-12-28 12:40 | ECHOF ---
Referral Reason:Chest pain and cardiomyopathy MEASUREMENTS -------- HEIGHT: 165.1 cm WEIGHT: 96.2 kg BP: 161/64 RVIDd: 2.7 cm (< 3.3) IVSd: 1.1 cm (0.6 - 1.1) LVIDd: 6.2 cm (3.9 - 5.3) LVPWd: 1.6 cm (0.6 - 1.1) IVSs: 1.3 cm LVIDs: 6.2 cm LVPWs: 1.3 cm LA Diam: 3.8 cm (2.7 - 3.8) Ao Diam: 2.9 cm (2.0 - 3.7) AV Cusp: 1.8 cm (1.5 - 2.6) LA Diam: 3.5 cm (2.7 - 3.8) MV EXCURSION: 14.924 mm (> 18.000) MV EF SLOPE: 89 mm/s (70 - 150) EPSS: 1.4 cm MV E Arnoldo: 0.55 m/s MV DecT: 263 ms MV A Arnoldo: 1.13 m/s MV E/A Ratio: 0.49 FINDINGS -------- Sinus rhythm. This was a technically good study. The left ventricle is severely dilated. There is severe global hypokinesis of LV . Overall left v entricular systolic function is severely impaired with, an EF < 20%. The right ventricle is normal in size. The left atrial size is normal. The right atrial size is normal. The aortic valve is trileaflet, and appears structurally normal. No aortic stenosis or regurgitation. Mild mitral annular calcification present. [id number] mitral regurgitation is present. Mild tricuspid regurgitation present. There is no evidence of pulmonary hypertension. Trace/mild (physiologic) pulmonic regurgitation. The aortic root size is normal. There is no pericardial effusion. CONCLUSIONS -------- 1. Sinus rhythm. 2. The left ventricle is severely dilated. 3. There is severe global hypokinesis of LV . 4. Overall left ventricular systolic function is severely impaired with, an EF < 20%. 5. The left atrial size is normal. 6. The aortic valve is trileaflet, and appears structurally normal. No aortic stenosis or regurgitati on. 7. Mild mitral annular calcification present. 8. [id number] mitral regurgitation is present. 9. Mild tricuspid regurgitation present. 10. There is no evidence of pulmonary hypertension. 11. Trace/mild (physiologic) pulmonic regurgitation. 12. The aortic root size is normal. 13. There is no pericardial effusion. PRECISION INSTRUMENT MAKER AND REPAIRER: Deanna Iglesias RDCS
--- NOTE | 2017-12-28 13:11 | P.PN ---
Subjective Progress Note Date: 12/28/17 Principal diagnosis: Cardiac arrest and respiratory failure This is a 72-year-old female brought into the emergency room by EMS, patient was walking with her , and she had a sudden cardiac arrest, patient collapsed. EMS noted ventricular fibrillation on arrival, down time is over 25 minutes. Patient was brought into the ER, and her EKG showed a left bundle branch block pattern. Seen by cardiology on consultation, and she underwent immediate cardiac catheterization. Patient was found to have normal coronary circulation, but poor LV function, ejection fraction of 20-30%. Transferred to the ICU, on mechanical ventilation, unresponsive, pupils are pinpoint, CT of the brain is pending, neurologic consultation is pending. Patient is hemodynamically stable, she is in normal sinus rhythm, and she is not requiring any pressors at this point. However she is on amiodarone as recommended by cardiology. Ventilator settings were reviewed and adjusted, cut down her FiO2 to 50%, she is on tidal volume of 450. PEEP of 5. ABG earlier today showed a pO2 of 342 pCO2 of 44 pH of 7.18. Another ABG is pending. CBC is relatively normal. Electrolytes were noted to be relatively normal however the bicarb is 17 patient has mild anion gap metabolic acidosis with anion gap of 14. Troponin was noted to be at 0.028. Renal profile is normal with a BUN of 12 and creatinine of 0.80. No family members available at bedside. Chart was reviewed chest x-ray was ordered however she had an earlier chest x-ray when she was intubated showing pulmonary vascular congestion, and upper lobe patchy infiltrate questionable pulmonary edema or true infiltrate Reevaluated today on 12/28/2017, patient remains on mechanical ventilation. Shortly after I saw her yesterday, patient was noted to have withdrawal from deep painful stimuli. Apparently she was quite tachypneic last night, and she was placed on propofol. This morning the patient is not even responding to any deep painful stimuli, and she has downward deviation of her eyes. Pupils are reactive to light. Her ventilator settings are basically about the same. Labs including ABG showed a pO2 of 77 pCO2 of 31 pH of 7.45 and this is on 45% FiO2. CBC is relatively normal basic metabolic profile is normal renal profile is normal. Chest x-ray showed mostly by basilar atelectasis, possible infiltrates. At the time of my evaluation, patient was having an EEG, she did have a CT of the brain last night and it was basically negative, nondiagnostic. No evidence of bleed or stroke. Objective - Vital Signs Vital signs: Vital Signs Temp 99.3 F 12/28/17 12:00 Pulse 89 12/28/17 12:00 Resp 25 H 12/28/17 12:00 BP 120/55 12/27/17 17:15 Pulse Ox 94 L 12/28/17 12:00 Intake & Output 12/27/17 12/28/17 12/28/17 18:59 06:59 18:59 Intake Total 532.376 9475.907 779.367 Output Total 425 890 280 Balance -37.430 207.907 499.367 Weight 95.254 kg 96.2 kg 96.2 kg Intake: IV 259 891.2 655.7 Amiodarone 450 mg In 200.2 100.2 Dextrose 5% in Water 250 ml @ 0.5 MG/MIN 16.66 mls /hr IV .Q15H1M [facility] Rx#: [id number] Magnesium Sulfate-D5w Pmx 200 1 gm In Dextrose/Water 1 100ml.bag @ 100 mls/hr IVPB Q1H [facility] Rx#: [id number] Normal Saline 150 100 Piperacillin-Tazobactam 3 75.0 37.5 .375 gm In Dextrose/Water 1 50ml.bag @ 12.5 mls/hr IVPB Q12HR [facility] Rx#: [id number] Pressure Bag 9 36 18 Sodium Chloride 0.9% 500 480 300 ml @ 50 mls/hr IV .Q10H [facility] Rx#:[id number] Intake, IV Titration 8.570 176.707 73.667 Amount Propofol 1,000 mg In 8.570 176.707 73.667 Empty Bag 1 bag @ Titrate IV .Q0M [facility] Rx#: [id number] Tube Feeding 20 Other 120 30 30 Output: Gastric Drainage 150 Urine 425 740 280 Other: Voiding Method Indwelling Catheter Indwelling Catheter Indwelling Catheter ABP, PAP, CO, CI - Last Documented Arterial Blood Pressure 156/74 - Exam Physical Exam revealed a 72-year-old female, obese, on mechanical ventilation, unresponsive to any stimuli. Pupils are reactive to light. Head: Atraumatic, normocephalic, endotracheal tube is intact, orogastric tube is intact. HEENT:[Neck is supple.] [No neck masses.] [No thyromegaly.] [No JVD.] Pupils are pinpoint, no icterus. Chest: [Crackles and rhonchi noted bilaterally. Symmetrical chest expansion bilaterally.] Cardiac Exam: [Normal S1 and S2, no S3 gallop, no murmur.] Abdomen: [Soft, nontender, no megaly, no rebound, no guarding, normal bowel sounds.] Extremities: [No clubbing, no edema, no cyanosis.] Neurological Exam: Unresponsive to any stimuli. Pupils are reactive to light, there is downward deviation of both eyes. Lymphatics: No lymphadenopathy. Psychiatric: Cannot be assessed. - Labs CBC & Chem 7: 12/28/17 04:40 12/28/17 09:25 Labs: Abnormal Lab Results - Last 24 Hours (Table) 12/27/17 12/27/17 12/27/17 Range/Units 13:54 13:54 14:19 MCV 101.8 H (80.0-100.0) fL MCHC 29.8 L (31.0-37.0) g/dL Plt Count 129 L (150-450) k/uL Lymphocytes # (1.0-4.8) k/uL Lymphocytes # (Manual) 5.33 H (1.0-4.8) k/uL ABG pH 7.18 L* (7.35-7.45) ABG pCO2 (35-45) mmHg ABG pO2 342 H (83-108) mmHg ABG HCO3 16 L (21-25) mmol/L ABG Total CO2 18 L (19-24) mmol/L ABG O2 Saturation 99.9 H (94-97) % Potassium 3.4 L (3.5-5.1) mmol/L Chloride 110 H (98-107) mmol/L Carbon Dioxide 17 L (22-30) mmol/L BUN (7-17) mg/dL Glucose 245 H (74-99) mg/dL POC Glucose (mg/dL) (75-99) mg/dL AST 119 H (14-36) U/L ALT 139 H (9-52) U/L Total Protein 5.6 L (6.3-8.2) g/dL Albumin 3.2 L (3.5-5.0) g/dL Urine Appearance (Clear) Urine Blood (Negative) Ur Leukocyte Esterase (Negative) Urine RBC (0-5) /hpf Urine WBC (0-5) /hpf Uric Acid Crystals (None) /hpf Urine Mucus (None) /hpf 12/27/17 12/27/17 12/27/17 Range/Units 14:21 15:53 16:56 MCV (80.0-100.0) fL MCHC (31.0-37.0) g/dL Plt Count (150-450) k/uL Lymphocytes # (1.0-4.8) k/uL Lymphocytes # (Manual) (1.0-4.8) k/uL ABG pH 7.30 L (7.35-7.45) ABG pCO2 (35-45) mmHg ABG pO2 109 H (83-108) mmHg ABG HCO3 (21-25) mmol/L ABG Total CO2 (19-24) mmol/L ABG O2 Saturation 98.2 H (94-97) % Potassium (3.5-5.1) mmol/L Chloride (98-107) mmol/L Carbon Dioxide (22-30) mmol/L BUN (7-17) mg/dL Glucose (74-99) mg/dL POC Glucose (mg/dL) 224 H 146 H (75-99) mg/dL AST (14-36) U/L ALT (9-52) U/L Total Protein (6.3-8.2) g/dL Albumin (3.5-5.0) g/dL Urine Appearance (Clear) Urine Blood (Negative) Ur Leukocyte Esterase (Negative) Urine RBC (0-5) /hpf Urine WBC (0-5) /hpf Uric Acid Crystals (None) /hpf Urine Mucus (None) /hpf 12/27/17 12/28/17 12/28/17 Range/Units 20:15 00:04 00:55 MCV (80.0-100.0) fL MCHC (31.0-37.0) g/dL Plt Count (150-450) k/uL Lymphocytes # (1.0-4.8) k/uL Lymphocytes # (Manual) (1.0-4.8) k/uL ABG pH (7.35-7.45) ABG pCO2 (35-45) mmHg ABG pO2 (83-108) mmHg ABG HCO3 (21-25) mmol/L ABG Total CO2 (19-24) mmol/L ABG O2 Saturation (94-97) % Potassium (3.5-5.1) mmol/L Chloride (98-107) mmol/L Carbon Dioxide (22-30) mmol/L BUN (7-17) mg/dL Glucose (74-99) mg/dL POC Glucose (mg/dL) 150 H 132 H (75-99) mg/dL AST (14-36) U/L ALT (9-52) U/L Total Protein (6.3-8.2) g/dL Albumin (3.5-5.0) g/dL Urine Appearance Turbid H (Clear) Urine Blood Small H (Negative) Ur Leukocyte Esterase Trace H (Negative) Urine RBC 24 H (0-5) /hpf Urine WBC 9 H (0-5) /hpf Uric Acid Crystals Many H (None) /hpf Urine Mucus Rare H (None) /hpf 12/28/17 12/28/17 12/28/17 Range/Units 04:40 04:40 04:42 MCV (80.0-100.0) fL MCHC (31.0-37.0) g/dL Plt Count 124 L (150-450) k/uL Lymphocytes # 0.7 L (1.0-4.8) k/uL Lymphocytes # (Manual) (1.0-4.8) k/uL ABG pH (7.35-7.45) ABG pCO2 (35-45) mmHg ABG pO2 (83-108) mmHg ABG HCO3 (21-25) mmol/L ABG Total CO2 (19-24) mmol/L ABG O2 Saturation (94-97) % Potassium (3.5-5.1) mmol/L Chloride 109 H (98-107) mmol/L Carbon Dioxide 21 L (22-30) mmol/L BUN 18 H (7-17) mg/dL Glucose 134 H (74-99) mg/dL POC Glucose (mg/dL) 137 H (75-99) mg/dL AST (14-36) U/L ALT (9-52) U/L Total Protein (6.3-8.2) g/dL Albumin (3.5-5.0) g/dL Urine Appearance (Clear) Urine Blood (Negative) Ur Leukocyte Esterase (Negative) Urine RBC (0-5) /hpf Urine WBC (0-5) /hpf Uric Acid Crystals (None) /hpf Urine Mucus (None) /hpf 12/28/17 12/28/17 12/28/17 Range/Units 07:18 08:03 09:25 MCV (80.0-100.0) fL MCHC (31.0-37.0) g/dL Plt Count (150-450) k/uL Lymphocytes # (1.0-4.8) k/uL Lymphocytes # (Manual) (1.0-4.8) k/uL ABG pH (7.35-7.45) ABG pCO2 31 L (35-45) mmHg ABG pO2 77 L (83-108) mmHg ABG HCO3 (21-25) mmol/L ABG Total CO2 (19-24) mmol/L ABG O2 Saturation (94-97) % Potassium (3.5-5.1) mmol/L Chloride (98-107) mmol/L Carbon Dioxide (22-30) mmol/L BUN (7-17) mg/dL Glucose (74-99) mg/dL POC Glucose (mg/dL) 130 H (75-99) mg/dL AST 125 H (14-36) U/L ALT 168 H (9-52) U/L Total Protein (6.3-8.2) g/dL Albumin (3.5-5.0) g/dL Urine Appearance (Clear) Urine Blood (Negative) Ur Leukocyte Esterase (Negative) Urine RBC (0-5) /hpf Urine WBC (0-5) /hpf Uric Acid Crystals (None) /hpf Urine Mucus (None) /hpf 12/28/17 Range/Units 11:36 MCV (80.0-100.0) fL MCHC (31.0-37.0) g/dL Plt Count (150-450) k/uL Lymphocytes # (1.0-4.8) k/uL Lymphocytes # (Manual) (1.0-4.8) k/uL ABG pH (7.35-7.45) ABG pCO2 (35-45) mmHg ABG pO2 (83-108) mmHg ABG HCO3 (21-25) mmol/L ABG Total CO2 (19-24) mmol/L ABG O2 Saturation (94-97) % Potassium (3.5-5.1) mmol/L Chloride (98-107) mmol/L Carbon Dioxide (22-30) mmol/L BUN (7-17) mg/dL Glucose (74-99) mg/dL POC Glucose (mg/dL) 130 H (75-99) mg/dL AST (14-36) U/L ALT (9-52) U/L Total Protein (6.3-8.2) g/dL Albumin (3.5-5.0) g/dL Urine Appearance (Clear) Urine Blood (Negative) Ur Leukocyte Esterase (Negative) Urine RBC (0-5) /hpf Urine WBC (0-5) /hpf Uric Acid Crystals (None) /hpf Urine Mucus (None) /hpf Microbiology - Last 24 Hours (Table) 12/28/17 00:55 Urine Culture - Preliminary Urine,Catheterized Assessment and Plan Assessment: Impression: 1 acute hypoxic respiratory failure secondary to cardiac arrest, most likely secondary to cardiac arrhythmia, ventricular fibrillation. 2 cardiac arrest 3 nonischemic cardiomyopathy as noted on her cardiac workup. 4 suspect anoxic brain injury, patient had prolonged downtime during CPR and resuscitation. 5 acute anion gap metabolic acidosis secondary to cardiogenic shock. Corrected nicely overnight. Recommendation: Continue present supportive care measures. Continue GI and DVT prophylaxis. Start enteral feeding, dietitian was consulted. EEG is being done by neurology.. Monitor neurological status will update the family on her neurological condition once I have further input from neurology on the case. At present, her overall prognosis seems to be definitely poor and guarded. Critical care time is 35 minutes. Time with Patient: Greater than 30
[2017-12-28 13:55] LABS: Hemoglobin A1C 5.8 % (4.0-6.0)
--- NOTE | 2017-12-28 14:52 | P.PN ---
Subjective Progress Note Date: 12/28/17 Principal diagnosis: Anoxic brain injury This is a 72-year-old female continuing to be evaluated by the neurology service for the above complaint. She had a witnessed cardiac arrest. EMS was called. She was found to be in ventricular fibrillation. Down time was approximately [address] of the brain showed no acute intracranial abnormalities. Her neck enzymes are negative. Cardiology did a heart catheterization and showed no significant coronary artery stenosis but poor left ventricular function. She remains unresponsive and mechanically ventilated in the ICU. She continues to be off of sedation. An EEG has been ordered but not yet accomplished. No changes been reported in her neurological status over the past 24 hours. Objective - Vital Signs Vital signs: Vital Signs Temp 99.3 F 12/28/17 12:00 Pulse 86 12/28/17 14:00 Resp 28 H 12/28/17 14:00 BP 120/55 12/27/17 17:15 Pulse Ox 92 L 12/28/17 14:00 Intake & Output 12/27/17 12/28/17 12/28/17 18:59 06:59 18:59 Intake Total 417.765 2228.907 1221.267 Output Total 425 890 370 Balance -37.430 207.907 851.267 Weight 95.254 kg 96.2 kg 96.2 kg Intake: IV 259 891.2 807.6 Amiodarone 450 mg In 200.2 133.6 Dextrose 5% in Water 250 ml @ 0.5 MG/MIN 16.66 mls /hr IV .Q15H1M [facility] Rx#: [id number] Magnesium Sulfate-D5w Pmx 200 1 gm In Dextrose/Water 1 100ml.bag @ 100 mls/hr IVPB Q1H [facility] Rx#: [id number] Normal Saline 150 100 Piperacillin-Tazobactam 3 75.0 50.0 .375 gm In Dextrose/Water 1 50ml.bag @ 12.5 mls/hr IVPB Q12HR [facility] Rx#: [id number] Pressure Bag 9 36 24 Sodium Chloride 0.9% 500 480 400 ml @ 50 mls/hr IV .Q10H [facility] Rx#:[id number] Intake, IV Titration 8.570 176.707 323.667 Amount Amiodarone 450 mg In 250 Dextrose 5% in Water 250 ml @ 0.5 MG/MIN 16.66 mls /hr IV .Q15H1M [facility] Rx#: [id number] Propofol 1,000 mg In 8.570 176.707 73.667 Empty Bag 1 bag @ Titrate IV .Q0M [facility] Rx#: [id number] Tube Feeding 60 Other 120 30 30 Output: Gastric Drainage 150 Urine 425 740 370 Other: Voiding Method Indwelling Catheter Indwelling Catheter Indwelling Catheter ABP, PAP, CO, CI - Last Documented Arterial Blood Pressure 154/67 - Constitutional Constitutional Comment(s): Unresponsive and intubated in the ICU - Neck Neck: Absent: rigidity - Respiratory Details: Ventilated - Cardiovascular Rhythm: regular - Gastrointestinal General gastrointestinal: Absent: distended, tenderness - Neurologic Neurologic Comment(s): The patient is unresponsive and intubated in the ICU. There is no withdrawal to painful stimuli of the upper or lower extremities. Plantar reflex negative bilaterally. She continues to have sluggish pupils bilaterally. He has a mildly positive gag reflex. She has an absent corneal reflex and absent oculocephalic reflex. She has a fixed downward gaze of her right thigh. No tremors or seizure-like activities are seen. - Labs CBC & Chem 7: 12/28/17 04:40 12/28/17 09:25 Labs: Abnormal Lab Results - Last 24 Hours (Table) 12/27/17 12/27/17 12/27/17 Range/Units 13:54 14:19 15:53 Plt Count (150-450) k/uL Lymphocytes # (1.0-4.8) k/uL Lymphocytes # (Manual) 5.33 H (1.0-4.8) k/uL ABG pH 7.18 L* (7.35-7.45) ABG pCO2 (35-45) mmHg ABG pO2 342 H (83-108) mmHg ABG HCO3 16 L (21-25) mmol/L ABG Total CO2 18 L (19-24) mmol/L ABG O2 Saturation 99.9 H (94-97) % Chloride (98-107) mmol/L Carbon Dioxide (22-30) mmol/L BUN (7-17) mg/dL Glucose (74-99) mg/dL POC Glucose (mg/dL) 146 H (75-99) mg/dL AST (14-36) U/L ALT (9-52) U/L Urine Appearance (Clear) Urine Blood (Negative) Ur Leukocyte Esterase (Negative) Urine RBC (0-5) /hpf Urine WBC (0-5) /hpf Uric Acid Crystals (None) /hpf Urine Mucus (None) /hpf 12/27/17 12/27/17 12/28/17 Range/Units 16:56 20:15 00:04 Plt Count (150-450) k/uL Lymphocytes # (1.0-4.8) k/uL Lymphocytes # (Manual) (1.0-4.8) k/uL ABG pH 7.30 L (7.35-7.45) ABG pCO2 (35-45) mmHg ABG pO2 109 H (83-108) mmHg ABG HCO3 (21-25) mmol/L ABG Total CO2 (19-24) mmol/L ABG O2 Saturation 98.2 H (94-97) % Chloride (98-107) mmol/L Carbon Dioxide (22-30) mmol/L BUN (7-17) mg/dL Glucose (74-99) mg/dL POC Glucose (mg/dL) 150 H 132 H (75-99) mg/dL AST (14-36) U/L ALT (9-52) U/L Urine Appearance (Clear) Urine Blood (Negative) Ur Leukocyte Esterase (Negative) Urine RBC (0-5) /hpf Urine WBC (0-5) /hpf Uric Acid Crystals (None) /hpf Urine Mucus (None) /hpf 12/28/17 12/28/17 12/28/17 Range/Units 00:55 04:40 04:40 Plt Count 124 L (150-450) k/uL Lymphocytes # 0.7 L (1.0-4.8) k/uL Lymphocytes # (Manual) (1.0-4.8) k/uL ABG pH (7.35-7.45) ABG pCO2 (35-45) mmHg ABG pO2 (83-108) mmHg ABG HCO3 (21-25) mmol/L ABG Total CO2 (19-24) mmol/L ABG O2 Saturation (94-97) % Chloride 109 H (98-107) mmol/L Carbon Dioxide 21 L (22-30) mmol/L BUN 18 H (7-17) mg/dL Glucose 134 H (74-99) mg/dL POC Glucose (mg/dL) (75-99) mg/dL AST (14-36) U/L ALT (9-52) U/L Urine Appearance Turbid H (Clear) Urine Blood Small H (Negative) Ur Leukocyte Esterase Trace H (Negative) Urine RBC 24 H (0-5) /hpf Urine WBC 9 H (0-5) /hpf Uric Acid Crystals Many H (None) /hpf Urine Mucus Rare H (None) /hpf 12/28/17 12/28/17 12/28/17 Range/Units 04:42 07:18 08:03 Plt Count (150-450) k/uL Lymphocytes # (1.0-4.8) k/uL Lymphocytes # (Manual) (1.0-4.8) k/uL ABG pH (7.35-7.45) ABG pCO2 31 L (35-45) mmHg ABG pO2 77 L (83-108) mmHg ABG HCO3 (21-25) mmol/L ABG Total CO2 (19-24) mmol/L ABG O2 Saturation (94-97) % Chloride (98-107) mmol/L Carbon Dioxide (22-30) mmol/L BUN (7-17) mg/dL Glucose (74-99) mg/dL POC Glucose (mg/dL) 137 H 130 H (75-99) mg/dL AST (14-36) U/L ALT (9-52) U/L Urine Appearance (Clear) Urine Blood (Negative) Ur Leukocyte Esterase (Negative) Urine RBC (0-5) /hpf Urine WBC (0-5) /hpf Uric Acid Crystals (None) /hpf Urine Mucus (None) /hpf 12/28/17 12/28/17 Range/Units 09:25 11:36 Plt Count (150-450) k/uL Lymphocytes # (1.0-4.8) k/uL Lymphocytes # (Manual) (1.0-4.8) k/uL ABG pH (7.35-7.45) ABG pCO2 (35-45) mmHg ABG pO2 (83-108) mmHg ABG HCO3 (21-25) mmol/L ABG Total CO2 (19-24) mmol/L ABG O2 Saturation (94-97) % Chloride (98-107) mmol/L Carbon Dioxide (22-30) mmol/L BUN (7-17) mg/dL Glucose (74-99) mg/dL POC Glucose (mg/dL) 130 H (75-99) mg/dL AST 125 H (14-36) U/L ALT 168 H (9-52) U/L Urine Appearance (Clear) Urine Blood (Negative) Ur Leukocyte Esterase (Negative) Urine RBC (0-5) /hpf Urine WBC (0-5) /hpf Uric Acid Crystals (None) /hpf Urine Mucus (None) /hpf Microbiology - Last 24 Hours (Table) 12/28/17 00:55 Urine Culture - Preliminary Urine,Catheterized Assessment and Plan (1) Anoxic brain injury Current Visit: Yes Status: Suspected Code(s): G93.1 - ANOXIC BRAIN DAMAGE, NOT ELSEWHERE CLASSIFIED SNOMED Code(s): 632269042 (2) Unresponsiveness Current Visit: Yes Status: Acute Code(s): R41.89 - OTH SYMPTOMS AND SIGNS W COGNITIVE FUNCTIONS AND AWARENESS SNOMED Code(s): 742941822 (3) Cardiac arrest Current Visit: Yes Status: Acute Code(s): I46.9 - CARDIAC ARREST, CAUSE UNSPECIFIED SNOMED Code(s): 341235242 (4) Cardiomyopathy Current Visit: Yes Status: Acute Code(s): I42.9 - CARDIOMYOPATHY, UNSPECIFIED SNOMED Code(s): 58171076 Plan: This patient did have a witnessed collapse and cardiac arrest with downtime of approximately 25 minutes. She continues to be clinically ventilated and unresponsive off sedation. Her neurological examination continues to be significant and concerning for severe anoxic brain injury. An EEG has been ordered but not yet performed. Continue supportive care. Continue neurological checks. I have performed a history and physical on the above patient. I have reviewed the above note, and agree.
[2017-12-28 15:44] LABS: ALT 156 U/L (9-52); AST 110 U/L (14-36); Albumin 3.1 g/dL (3.5-5.0); Alkaline Phosphatase 43 U/L (38-126); Anion Gap 7 mmol/L; Blood Urea Nitrogen 15 mg/dL (7-17); Calcium 8.3 mg/dL (8.4-10.2); Carbon Dioxide 22 mmol/L (22-30); Chloride 109 mmol/L (98-107); Glucose 127 mg/dL (74-99); Potassium 3.9 mmol/L (3.5-5.1); Sodium 138 mmol/L (137-145); Total Bilirubin 1.3 mg/dL (0.2-1.3); Total Protein 5.5 g/dL (6.3-8.2)
[2017-12-28 18:18] LABS: Glucose,Whole Blood 103 mg/dL (75-99)
--- NOTE | 2017-12-28 18:49 | EEG ---
ELECTROENCEPHALOGRAM REPORT DATE OF SERVICE: 12/28/2017 REASON FOR TESTING: Anoxic brain injury. DESCRIPTION OF THE PROCEDURE: This EEG was performed using a 21-channel digital electroencephalograph, following international 10-20 system. DESCRIPTION OF THE RECORDING: From the beginning of the tracing, and with the patient's eyes closed, the background rhythm was mostly consisting of 6-7 Hz theta frequency in the posterior occipital leads. No obvious asymmetry is seen. Photic stimulation was performed with no driving response seen. No pathological waves were elicited. Frequent dysregulation is seen with occasional spikes. Hyperventilation was not performed. INTERPRETATION: This EEG is abnormal due to the presence of generalized slowing of the background rhythm, mostly in the theta range. This is consistent with mild encephalopathy. Frequent dysregulation and occasional spikes are seen which could be consistent with a reduced seizure threshold. No generalized epileptiform discharges were seen. Clinical correlation is recommended. JARRELL / TENZIN: [id number] /
[2017-12-28] MEDS: AMIODARONE 200 MG TAB PO SCH (21:20)
[2017-12-28] MEDS: METOPROLOL TARTRATE 50 MG TAB PO SCH (21:21)
[2017-12-28] MEDS: ACETAMINOPHEN IV (For NPO) 1,000 MG in EMPTY BAG 1 BAG IVPB PRN (21:53)
[2017-12-28 23:51] LABS: Glucose,Whole Blood 135 mg/dL (75-99)
[2017-12-29] MEDS: PIPERACILLIN-TAZOBACTAM 3.375 GM in DEXTROSE/WATER 1 50ML.BAG IVPB SCH ×3 (00:22→15:27)
[2017-12-29] MEDS: INSULIN ASPART 100 UNIT/ML 1 ML 10 ML VIAL SQ SCH ×4 (00:22→19:11)
[2017-12-29] MEDS: IPRATROPIUM-ALBUTEROL 3 ML NEB INHALATION SCH ×5 (03:26→19:18)
[2017-12-29 04:59] LABS: Basophils % (A) 0 %; Eosinophils % (A) 0 %; HCT 37.6 % (34.0-46.0); HGB 12.4 gm/dL (11.4-16.0); Lymphocytes # (A) 0.8 k/uL (1.0-4.8); Lymphocytes % (A) 10 %; MCH 30.9 pg (25.0-35.0); MCV 93.5 fL (80.0-100.0); Mean Platelet Volume 8.1; Monocytes # (A) 0.6 k/uL (0-1.0); Monocytes % (A) 6 %; Neutrophils # (A) 7.4 k/uL (1.3-7.7); Neutrophils % (A) 83 %; Platelet Count 107 k/uL (150-450); RBC 4.02 m/uL (3.80-5.40); RDW 12.9 % (11.5-15.5); WBC 8.9 k/uL (3.8-10.6)
[2017-12-29 05:17] LABS: Anion Gap 4 mmol/L; Blood Urea Nitrogen 18 mg/dL (7-17); Calcium 8.5 mg/dL (8.4-10.2); Carbon Dioxide 23 mmol/L (22-30); Chloride 109 mmol/L (98-107); Glucose 145 mg/dL (74-99); Magnesium 2.3 mg/dL (1.6-2.3); Phosphorus 3.3 mg/dL (2.5-4.5); Sodium 136 mmol/L (137-145)
[2017-12-29 05:49] LABS: Glucose,Whole Blood 140 mg/dL (75-99)
[2017-12-29 07:30] LABS: ABG Base Excess 0.7 mmol/L; ABG HCO3 25 mmol/L (21-25); ABG Oxygen Saturation 95.7 % (94-97); ABG PCO2 35 mmHg (35-45); ABG PH 7.46 (7.35-7.45); ABG PO2 72 mmHg (83-108); ABG TCO2 26 mmol/L (19-24)
[2017-12-29] MEDS: CHLORHEXIDINE GLUCONATE 15 ML CUP MUCOUS MEM SCH (08:13)
[2017-12-29] MEDS: METOPROLOL TARTRATE 50 MG TAB PO SCH (08:13)
[2017-12-29] MEDS: LISINOPRIL 5 MG TAB PO SCH (08:13)
[2017-12-29] MEDS: SPIRONOLACTONE 25 MG TAB PO SCH (08:13)
[2017-12-29] MEDS: ENOXAPARIN 40 MG/0.4 ML SYRINGE SQ SCH (08:13)
[2017-12-29] MEDS: PANTOPRAZOLE 40 MG/10 ML VIAL IVP SCH (08:13)
[2017-12-29] MEDS: AMIODARONE 200 MG TAB PO SCH (08:13)
[2017-12-29] MEDS ORDERED: LISINOPRIL 5 MG TAB PO STA (08:47)
[2017-12-29] MEDS ORDERED: amLODIPine 5 MG TAB PO SCH (09:00)
--- NOTE | 2017-12-29 09:26 | P.PN ---
Subjective Progress Note Date: 12/29/17 This is a 72-year-old female who was admitted following witnessed cardiac arrest. Patient required shocks for ventricular fibrillation. Cardiac catheterization revealed normal coronary arteries with severely impaired LV function. Suggestive of cardiomyopathy. Patient has been maintained on IV amiodarone. Hasn't had any cardiac arrhythmias of significance since admission. Patient's urine output has been fair. Renal functions are stable. Hemoglobin is stable. Liver and the vessels are slightly elevated on admission. Repeat testing is being done. It appears that patient may have had a long down time. Severe anoxic brain injury suspected. Neurology is following. Pupils are slightly reactive. No purposeful movements. Patient is maintaining sinus rhythm. Patient is going to have an EEG and further neurological evaluation. Meanwhile we will continue with by mouth amiodarone and also beta trina. I will add MANUEL inhibitor and also Aldactone. Prognosis is poor. 12/29/2017: Her neurological status didn't show much improvement. Occasionally she will open size and has some purposeless movements. Pupils are sluggishly reactive. Her blood pressures running high. Urine output is good. Lab values show stable kidney function. Liver enzymes showed some mild improvement. Patient remains in sinus rhythm with left bundle branch block. She may have significant anoxic injury to the brain. Patient may be constricted for comfort care by the family. We will increase the dose of the lisinopril and add Norvasc. Objective - Vital Signs Vital signs: Vital Signs Temp 100.7 F H 12/29/17 08:00 Pulse 82 12/29/17 08:00 Resp 27 H 12/29/17 08:00 BP 151/79 12/29/17 08:00 Pulse Ox 97 12/29/17 08:00 Intake & Output 12/28/17 12/29/17 12/29/17 18:59 06:59 18:59 Intake Total 5105.553 1272.5 247 Output Total 540 517 90 Balance 1035.767 652.5 157 Weight 96.2 kg 94.4 kg Intake: IV 1032.1 622.5 106 Amiodarone 450 mg In 133.6 Dextrose 5% in Water 250 ml @ 0.5 MG/MIN 16.66 mls /hr IV .Q15H1M [facility] Rx#: [id number] Magnesium Sulfate-D5w Pmx 200 1 gm In Dextrose/Water 1 100ml.bag @ 100 mls/hr IVPB Q1H [facility] Rx#: [id number] Normal Saline 230 100 Piperacillin-Tazobactam 3 62.5 62.5 .375 gm In Dextrose/Water 1 50ml.bag @ 12.5 mls/hr IVPB Q12HR [facility] Rx#: [id number] Pressure Bag 36 30 6 Sodium Chloride 0.9% 500 600 300 ml @ 50 mls/hr IV .Q10H [facility] Rx#:[id number] Intake, IV Titration 323.667 Amount Amiodarone 450 mg In 250 Dextrose 5% in Water 250 ml @ 0.5 MG/MIN 16.66 mls /hr IV .Q15H1M [facility] Rx#: [id number] Propofol 1,000 mg In 73.667 Empty Bag 1 bag @ Titrate IV .Q0M [facility] Rx#: [id number] Tube Feeding 160 487 111 Other 60 60 30 Output: Urine 540 517 90 Other: Voiding Method Indwelling Catheter Indwelling Catheter Indwelling Catheter ABP, PAP, CO, CI - Last Documented Arterial Blood Pressure 173/77 - Exam GENERAL EXAM: Patient is intubated and unresponsive HEENT: Pupils are sluggishly reactive NECK: No masses, no nuchal rigidity. CHEST: No chest wall deformity. LUNGS: Expiratory rhonchi HEART: S1 and S2 normal, distant heart sounds ABDOMEN: No hepatosplenomegaly, normal bowel sounds, no guarding or rigidity. SKIN: No rashes CENTRAL NERVOUS SYSTEM: Unresponsive EXTREMITIES: No cyanosis, clubbing or edema. - Labs CBC & Chem 7: 12/29/17 04:30 12/29/17 04:30 Labs: Abnormal Lab Results - Last 24 Hours (Table) 12/28/17 12/28/17 12/28/17 Range/Units 09:25 11:36 15:12 Plt Count (150-450) k/uL Lymphocytes # (1.0-4.8) k/uL ABG pH (7.35-7.45) ABG pO2 (83-108) mmHg ABG Total CO2 (19-24) mmol/L Sodium (137-145) mmol/L Chloride 109 H (98-107) mmol/L BUN (7-17) mg/dL Glucose 127 H (74-99) mg/dL POC Glucose (mg/dL) 130 H (75-99) mg/dL Calcium 8.3 L (8.4-10.2) mg/dL AST 125 H 110 H (14-36) U/L ALT 168 H 156 H (9-52) U/L Total Protein 5.5 L (6.3-8.2) g/dL Albumin 3.1 L (3.5-5.0) g/dL 12/28/17 12/28/17 12/29/17 Range/Units 18:16 23:51 04:30 Plt Count 107 L (150-450) k/uL Lymphocytes # 0.8 L (1.0-4.8) k/uL ABG pH (7.35-7.45) ABG pO2 (83-108) mmHg ABG Total CO2 (19-24) mmol/L Sodium (137-145) mmol/L Chloride (98-107) mmol/L BUN (7-17) mg/dL Glucose (74-99) mg/dL POC Glucose (mg/dL) 103 H 135 H (75-99) mg/dL Calcium (8.4-10.2) mg/dL AST (14-36) U/L ALT (9-52) U/L Total Protein (6.3-8.2) g/dL Albumin (3.5-5.0) g/dL 12/29/17 12/29/17 12/29/17 Range/Units 04:30 05:47 07:28 Plt Count (150-450) k/uL Lymphocytes # (1.0-4.8) k/uL ABG pH 7.46 H (7.35-7.45) ABG pO2 72 L (83-108) mmHg ABG Total CO2 26 H (19-24) mmol/L Sodium 136 L (137-145) mmol/L Chloride 109 H (98-107) mmol/L BUN 18 H (7-17) mg/dL Glucose 145 H (74-99) mg/dL POC Glucose (mg/dL) 140 H (75-99) mg/dL Calcium (8.4-10.2) mg/dL AST (14-36) U/L ALT (9-52) U/L Total Protein (6.3-8.2) g/dL Albumin (3.5-5.0) g/dL Microbiology - Last 24 Hours (Table) 12/28/17 00:55 Urine Culture - Preliminary Urine,Catheterized Assessment and Plan (1) Cardiomyopathy Current Visit: Yes Status: Acute Code(s): I42.9 - CARDIOMYOPATHY, UNSPECIFIED SNOMED Code(s): 88956554 (2) Cardiac arrest Current Visit: Yes Status: Acute Code(s): I46.9 - CARDIAC ARREST, CAUSE UNSPECIFIED SNOMED Code(s): 149701521 (3) Ventricular fibrillation Current Visit: Yes Status: Acute Code(s): I49.01 - VENTRICULAR FIBRILLATION SNOMED Code(s): 21186254 (4) Left bundle branch block Current Visit: Yes Status: Acute Code(s): I44.7 - LEFT BUNDLE-BRANCH BLOCK, UNSPECIFIED SNOMED Code(s): 40436615 Plan: Patient's mental status is a concern. Patient most probably has anoxic encephalopathy. Hemodynamically stable. No arrhythmias. Patient to be started on by mouth medication including amiodarone, beta trina, lisinopril and Aldactone. Prognosis is guarded. 12/29/2017: Patient remains comatose. Most probably patient is significant anoxic encephalopathy. Liver function tests and kidney function tests are stable. We'll continue current medical therapy except increasing the dose of the lisinopril and adding Norvasc. Prognosis is poor.
--- NOTE | 2017-12-29 10:12 | XR ---
EXAMINATION TYPE: XR chest 1V portable DATE OF EXAM: 12/29/2017 COMPARISON: 12/28/2017 HISTORY: Tube placement TECHNIQUE: Single frontal view of the chest is obtained. FINDINGS: ET tube now is approximately 2 cm above the rakesh and the NG tube appears in satisfactory position. Bilateral consolidation, pleural effusion, cardiomegaly and interstitial pattern stable. No pneumotho rax. IMPRESSION: 1. Stable bilateral consolidation and pleural effusion. Underlying venous congestion not excluded.
[2017-12-29 10:54] VITALS: BMI 34.6
[2017-12-29] MEDS: PROPOFOL 1,000 MG in EMPTY BAG 1 BAG IV SCH (12:12)
[2017-12-29 12:16] LABS: Glucose,Whole Blood 130 mg/dL (75-99)
[2017-12-29 13:02] VITALS: TEMP 100.2
--- NOTE | 2017-12-29 13:18 | P.PN ---
Subjective Progress Note Date: 12/29/17 Principal diagnosis: Cardiac arrest and respiratory failure This is a 72-year-old female brought into the emergency room by EMS, patient was walking with her , and she had a sudden cardiac arrest, patient collapsed. EMS noted ventricular fibrillation on arrival, down time is over 25 minutes. Patient was brought into the ER, and her EKG showed a left bundle branch block pattern. Seen by cardiology on consultation, and she underwent immediate cardiac catheterization. Patient was found to have normal coronary circulation, but poor LV function, ejection fraction of 20-30%. Transferred to the ICU, on mechanical ventilation, unresponsive, pupils are pinpoint, CT of the brain is pending, neurologic consultation is pending. Patient is hemodynamically stable, she is in normal sinus rhythm, and she is not requiring any pressors at this point. However she is on amiodarone as recommended by cardiology. Ventilator settings were reviewed and adjusted, cut down her FiO2 to 50%, she is on tidal volume of 450. PEEP of 5. ABG earlier today showed a pO2 of 342 pCO2 of 44 pH of 7.18. Another ABG is pending. CBC is relatively normal. Electrolytes were noted to be relatively normal however the bicarb is 17 patient has mild anion gap metabolic acidosis with anion gap of 14. Troponin was noted to be at 0.028. Renal profile is normal with a BUN of 12 and creatinine of 0.80. No family members available at bedside. Chart was reviewed chest x-ray was ordered however she had an earlier chest x-ray when she was intubated showing pulmonary vascular congestion, and upper lobe patchy infiltrate questionable pulmonary edema or true infiltrate Reevaluated today on 12/28/2017, patient remains on mechanical ventilation. Shortly after I saw her yesterday, patient was noted to have withdrawal from deep painful stimuli. Apparently she was quite tachypneic last night, and she was placed on propofol. This morning the patient is not even responding to any deep painful stimuli, and she has downward deviation of her eyes. Pupils are reactive to light. Her ventilator settings are basically about the same. Labs including ABG showed a pO2 of 77 pCO2 of 31 pH of 7.45 and this is on 45% FiO2. CBC is relatively normal basic metabolic profile is normal renal profile is normal. Chest x-ray showed mostly by basilar atelectasis, possible infiltrates. At the time of my evaluation, patient was having an EEG, she did have a CT of the brain last night and it was basically negative, nondiagnostic. No evidence of bleed or stroke. Patient was reevaluated today on 12/29/2017, family is at bedside, patient remains on mechanical ventilation, remains unresponsive, however the patient is triggering the mechanical ventilator, and she is breathing at a higher rate than the separate. Seems to be a bit asynchronous with the vent today, hence I recommended propofol drip. Her neurological evaluation so far is pointing to severe anoxic brain injury, and family was updated on her condition. There is a consensus by the family members to consider comfort care measures in the next 24 hours. In the meantime the patient is DO NOT RESUSCITATE CODE STATUS. So far there has been no change manager the last few days except upon initial presentation the patient was completely unresponsive, now she seems to at least withdraw from painful stimuli. And seems to be asynchronous with mechanical ventilation. Patient has loss of endotracheal tube secretions. Chest x-ray continues to show stable bilateral consolidation and pleural effusion. Patient does have underlying cardiomyopathy and LV dysfunction. ABG this morning on 45 % showed a pO2 of 72 pCO2 of 35 pH of 7.46. All the rest of the labs were reviewed. And family members were all updated on her condition at bedside. Objective - Vital Signs Vital signs: Vital Signs Temp 100.2 F H 12/29/17 12:00 Pulse 72 12/29/17 13:00 Resp 16 12/29/17 13:00 BP 140/59 12/29/17 13:00 Pulse Ox 97 12/29/17 13:00 Intake & Output 12/28/17 12/29/17 12/29/17 18:59 06:59 18:59 Intake Total 4621.410 8954.5 974.0 Output Total 540 517 290 Balance 1035.767 652.5 684.0 Weight 96.2 kg 94.4 kg 94.4 kg Intake: IV 1032.1 622.5 421.0 Amiodarone 450 mg In 133.6 Dextrose 5% in Water 250 ml @ 0.5 MG/MIN 16.66 mls /hr IV .Q15H1M [facility] Rx#: [id number] Magnesium Sulfate-D5w Pmx 200 1 gm In Dextrose/Water 1 100ml.bag @ 100 mls/hr IVPB Q1H [facility] Rx#: [id number] Normal Saline 230 350 Piperacillin-Tazobactam 3 62.5 62.5 .375 gm In Dextrose/Water 1 50ml.bag @ 12.5 mls/hr IVPB Q12HR [facility] Rx#: [id number] Piperacillin-Tazobactam 3 50.0 .375 gm In Dextrose/Water 1 50ml.bag @ 12.5 mls/hr IVPB Q8HR [facility] Rx#: [id number] Pressure Bag 36 30 21 Sodium Chloride 0.9% 500 600 300 ml @ 50 mls/hr IV .Q10H [facility] Rx#:[id number] Intake, IV Titration 323.667 0 Amount Amiodarone 450 mg In 250 Dextrose 5% in Water 250 ml @ 0.5 MG/MIN 16.66 mls /hr IV .Q15H1M [facility] Rx#: [id number] Propofol 1,000 mg In 73.667 0 Empty Bag 1 bag @ Titrate IV .Q0M [facility] Rx#: [id number] Tube Feeding 160 487 333 Other 60 60 220 Output: Urine 540 517 290 Other: Voiding Method Indwelling Catheter Indwelling Catheter Indwelling Catheter ABP, PAP, CO, CI - Last Documented Arterial Blood Pressure 164/62 - Exam Physical Exam revealed a 72-year-old female, obese, on mechanical ventilation, unresponsive to any stimuli. Pupils are reactive to light. Head: Atraumatic, normocephalic, endotracheal tube is intact, orogastric tube is intact. HEENT:[Neck is supple.] [No neck masses.] [No thyromegaly.] [No JVD.] Pupils are pinpoint, no icterus. Chest: [Crackles and rhonchi noted bilaterally. Symmetrical chest expansion bilaterally.] Cardiac Exam: [Normal S1 and S2, no S3 gallop, no murmur.] Abdomen: [Soft, nontender, no megaly, no rebound, no guarding, normal bowel sounds.] Extremities: [No clubbing, no edema, no cyanosis.] Neurological Exam: Unresponsive to any stimuli. Pupils are reactive to light, there is downward deviation of both eyes. Lymphatics: No lymphadenopathy. Psychiatric: Cannot be assessed. - Labs CBC & Chem 7: 12/29/17 04:30 12/29/17 04:30 Labs: Abnormal Lab Results - Last 24 Hours (Table) 12/28/17 12/28/17 12/28/17 Range/Units 15:12 18:16 23:51 Plt Count (150-450) k/uL Lymphocytes # (1.0-4.8) k/uL ABG pH (7.35-7.45) ABG pO2 (83-108) mmHg ABG Total CO2 (19-24) mmol/L Sodium (137-145) mmol/L Chloride 109 H (98-107) mmol/L BUN (7-17) mg/dL Glucose 127 H (74-99) mg/dL POC Glucose (mg/dL) 103 H 135 H (75-99) mg/dL Calcium 8.3 L (8.4-10.2) mg/dL AST 110 H (14-36) U/L ALT 156 H (9-52) U/L Total Protein 5.5 L (6.3-8.2) g/dL Albumin 3.1 L (3.5-5.0) g/dL 12/29/17 12/29/17 12/29/17 Range/Units 04:30 04:30 05:47 Plt Count 107 L (150-450) k/uL Lymphocytes # 0.8 L (1.0-4.8) k/uL ABG pH (7.35-7.45) ABG pO2 (83-108) mmHg ABG Total CO2 (19-24) mmol/L Sodium 136 L (137-145) mmol/L Chloride 109 H (98-107) mmol/L BUN 18 H (7-17) mg/dL Glucose 145 H (74-99) mg/dL POC Glucose (mg/dL) 140 H (75-99) mg/dL Calcium (8.4-10.2) mg/dL AST (14-36) U/L ALT (9-52) U/L Total Protein (6.3-8.2) g/dL Albumin (3.5-5.0) g/dL 12/29/17 12/29/17 Range/Units 07:28 12:12 Plt Count (150-450) k/uL Lymphocytes # (1.0-4.8) k/uL ABG pH 7.46 H (7.35-7.45) ABG pO2 72 L (83-108) mmHg ABG Total CO2 26 H (19-24) mmol/L Sodium (137-145) mmol/L Chloride (98-107) mmol/L BUN (7-17) mg/dL Glucose (74-99) mg/dL POC Glucose (mg/dL) 130 H (75-99) mg/dL Calcium (8.4-10.2) mg/dL AST (14-36) U/L ALT (9-52) U/L Total Protein (6.3-8.2) g/dL Albumin (3.5-5.0) g/dL Microbiology - Last 24 Hours (Table) 12/28/17 00:55 Urine Culture - Preliminary Urine,Catheterized Assessment and Plan Assessment: Impression: 1 acute hypoxic respiratory failure secondary to cardiac arrest, most likely secondary to cardiac arrhythmia, ventricular fibrillation. 2 cardiac arrest 3 nonischemic cardiomyopathy as noted on her cardiac workup. 4 suspect anoxic brain injury, patient had prolonged downtime during CPR and resuscitation. 5 acute anion gap metabolic acidosis secondary to cardiogenic shock. Corrected nicely overnight. Recommendation: Continue present supportive care measures. Had a long discussion about the patient's condition with and other family members, all aware of her poor prognosis, they have already discussed her condition with the neurologist, and the plan is to consider terminal weaning and extubation in a.m. In the meantime the patient is DO NOT RESUSCITATE, CODE STATUS. Critical care time is 55 minutes. Time with Patient: Greater than 30
[2017-12-29] MEDS: ACETAMINOPHEN IV (For NPO) 1,000 MG in EMPTY BAG 1 BAG IVPB PRN (15:46)
--- NOTE | 2017-12-29 16:41 | P.PN ---
Subjective Progress Note Date: 12/29/17 Principal diagnosis: Anoxic brain injury This is a 72-year-old female continuing to be evaluated by the neurology service for the above complaint. She had a witnessed cardiac arrest. EMS was called. She was found to be in ventricular fibrillation. Down time was approximately [address] of the brain showed no acute intracranial abnormalities. Her neck enzymes are negative. Cardiology did a heart catheterization and showed no significant coronary artery stenosis but poor left ventricular function. She remains unresponsive and mechanically ventilated in the ICU. An EEG did show encephalopathy with no epileptiform activity. No significant changes have been reported in her neurological status over the past 24 hours. She is currently a DO NOT RESUSCITATE CODE STATUS. It seems the family is considering terminal weaning and extubation in the morning. Objective - Vital Signs Vital signs: Vital Signs Temp 100.2 F H 12/29/17 12:00 Pulse 75 12/29/17 16:00 Resp 20 12/29/17 16:00 BP 122/54 12/29/17 16:00 Pulse Ox 95 12/29/17 16:00 Intake & Output 12/28/17 12/29/17 12/29/17 18:59 06:59 18:59 Intake Total 7511.578 8491.5 1330.674 Output Total 540 517 420 Balance 1035.767 652.5 910.674 Weight 96.2 kg 94.4 kg 94.4 kg Intake: IV 1032.1 622.5 580.0 Amiodarone 450 mg In 133.6 Dextrose 5% in Water 250 ml @ 0.5 MG/MIN 16.66 mls /hr IV .Q15H1M [facility] Rx#: [id number] Magnesium Sulfate-D5w Pmx 200 1 gm In Dextrose/Water 1 100ml.bag @ 100 mls/hr IVPB Q1H [facility] Rx#: [id number] Normal Saline 230 500 Piperacillin-Tazobactam 3 62.5 62.5 .375 gm In Dextrose/Water 1 50ml.bag @ 12.5 mls/hr IVPB Q12HR [facility] Rx#: [id number] Piperacillin-Tazobactam 3 50.0 .375 gm In Dextrose/Water 1 50ml.bag @ 12.5 mls/hr IVPB Q8HR [facility] Rx#: [id number] Pressure Bag 36 30 30 Sodium Chloride 0.9% 500 600 300 ml @ 50 mls/hr IV .Q10H [facility] Rx#:[id number] Intake, IV Titration 323.667 19.674 Amount Amiodarone 450 mg In 250 Dextrose 5% in Water 250 ml @ 0.5 MG/MIN 16.66 mls /hr IV .Q15H1M [facility] Rx#: [id number] Propofol 1,000 mg In 73.667 19.674 Empty Bag 1 bag @ Titrate IV .Q0M [facility] Rx#: [id number] Tube Feeding 160 487 481 Other 60 60 250 Output: Urine 540 517 420 Other: Voiding Method Indwelling Catheter Indwelling Catheter Indwelling Catheter ABP, PAP, CO, CI - Last Documented Arterial Blood Pressure 162/60 - Constitutional Constitutional Comment(s): Intubated and sedated in the ICU - EENT EENT Comment(s): Minimally responsive pupils. Negative oculocephalic reflex. Negative corneal reflex. - Neck Neck: Absent: rigidity - Respiratory Details: Ventilated Respiratory: negative: prolonged expiration, prolonged inspiration - Cardiovascular Rhythm: regular - Gastrointestinal General gastrointestinal: Absent: distended, tenderness - Neurologic Neurologic Comment(s): Patient remains intubated and sedated in the ICU. There are some possible miniscule response to painful stimuli that this is clinically indistinguishable from small spontaneous movements. Very little spontaneous movement of any extremity is noted. Plantar reflexes continue to show silent toes bilaterally. There is still somewhat of a gag reflex. Absent oculocephalic and corneal reflex. No seizure activity is seen. - Labs CBC & Chem 7: 12/29/17 04:30 12/29/17 04:30 Labs: Abnormal Lab Results - Last 24 Hours (Table) 12/28/17 12/28/17 12/29/17 Range/Units 18:16 23:51 04:30 Plt Count 107 L (150-450) k/uL Lymphocytes # 0.8 L (1.0-4.8) k/uL ABG pH (7.35-7.45) ABG pO2 (83-108) mmHg ABG Total CO2 (19-24) mmol/L Sodium (137-145) mmol/L Chloride (98-107) mmol/L BUN (7-17) mg/dL Glucose (74-99) mg/dL POC Glucose (mg/dL) 103 H 135 H (75-99) mg/dL 12/29/17 12/29/17 12/29/17 Range/Units 04:30 05:47 07:28 Plt Count (150-450) k/uL Lymphocytes # (1.0-4.8) k/uL ABG pH 7.46 H (7.35-7.45) ABG pO2 72 L (83-108) mmHg ABG Total CO2 26 H (19-24) mmol/L Sodium 136 L (137-145) mmol/L Chloride 109 H (98-107) mmol/L BUN 18 H (7-17) mg/dL Glucose 145 H (74-99) mg/dL POC Glucose (mg/dL) 140 H (75-99) mg/dL 12/29/17 Range/Units 12:12 Plt Count (150-450) k/uL Lymphocytes # (1.0-4.8) k/uL ABG pH (7.35-7.45) ABG pO2 (83-108) mmHg ABG Total CO2 (19-24) mmol/L Sodium (137-145) mmol/L Chloride (98-107) mmol/L BUN (7-17) mg/dL Glucose (74-99) mg/dL POC Glucose (mg/dL) 130 H (75-99) mg/dL Microbiology - Last 24 Hours (Table) 12/28/17 00:55 Urine Culture - Final Urine,Catheterized Assessment and Plan (1) Anoxic brain injury Current Visit: Yes Status: Suspected Code(s): G93.1 - ANOXIC BRAIN DAMAGE, NOT ELSEWHERE CLASSIFIED SNOMED Code(s): 690808649 (2) Unresponsiveness Current Visit: Yes Status: Acute Code(s): R41.89 - [facility] SYMPTOMS AND SIGNS W COGNITIVE FUNCTIONS AND AWARENESS SNOMED Code(s): 470686734 (3) Cardiac arrest Current Visit: Yes Status: Acute Code(s): I46.9 - CARDIAC ARREST, CAUSE UNSPECIFIED SNOMED Code(s): 570237999 (4) Cardiomyopathy Current Visit: Yes Status: Acute Code(s): I42.9 - CARDIOMYOPATHY, UNSPECIFIED SNOMED Code(s): 82904837 Plan: This patient did have a witnessed collapse and cardiac arrest with downtime of approximately 25 minutes. She continues to be clinically ventilated and unresponsive. Her neurological examination continues to be significant and concerning for severe anoxic brain injury. Continue supportive care congruent with the desires of the family. Prognosis continues to be quite poor. We have no objection to the plan of the terminal weaning as stated above. We may be consulted on as-needed basis. I have performed a history and physical on the above patient. I have reviewed the above note, and agree.
[2017-12-29 18:46] LABS: Glucose,Whole Blood 123 mg/dL (75-99)
[2017-12-29] MEDS ORDERED: ARTIFICIAL TEARS-HYPROMELLOSE DROPS 15 ML BTL BOTH EYES PRN (19:00)
[2017-12-29] MEDS ORDERED: DRY MOUTH SPRAY 44.3 SPRAY/44.3 ML SPRAY MUCOUS MEM PRN (19:00)
[2017-12-29] MEDS ORDERED: MORPHINE SULFATE 4 MG/ML SYRINGE IV PRN (19:00)
[2017-12-29] MEDS ORDERED: ONDANSETRON 4 MG/2 ML VIAL IVP PRN (19:00)
[2017-12-29] MEDS ORDERED: ATROPINE OPHTH SOLN 1% 5ML BTL SUBLINGUAL PRN (19:00)
[2017-12-29] MEDS ORDERED: guaiFENesin SYRUP 100MG/5ML 200 MG/10 ML CUP PO PRN (19:00)
[2017-12-29] MEDS: MORPHINE SULFATE (100 MG/2 ML) 100 MG in SODIUM CHLORIDE 0.9% 100 ML IV SCH (20:30)
[2017-12-29 21:05] VITALS: BP 124/53
--- NOTE | 2017-12-29 23:21 | P.PN ---
Subjective Progress Note Date: 12/29/17 Principal diagnosis: Acute cardiac arrest and collapse Ventricular fibrillation Patient is a 72-year-old female without significant past medical history and has not followed with PCP for the past 40 years was brought to the hospital status post cardiac arrest and collapsed. Patient was walking with her and suddenly patient had cardiac arrest and collapsed to the ground. Patient had a time for about 20 minutes. Patient had CPR, shock and epinephrine was given on site. EMS noted ventricular fibrillation. EKG in the ER showed left bundle-branch block. Patient had as a cardiac arrest while in the ER. Patient was emergently taken to cardiac catheterization which found have normal coronaries but LV function is low with ejection fraction 20-30%. Cardiomyopathy was suspected. Patient was transferred to ICU. Currently on mechanical ventilation. Patient does not have any spontaneous movement at this time. Currently patient is undergoing EEG. CT head was done. Showed no acute intracranial process. Chest x-ray showed there is pulmonary venous congestion with upper lobe patchy infiltrate which may reflect early changes of acute pulmonary edema. The heart is enlarged otherwise. Troponin was 0.08, bicarb is 17 9 and BUN and creatinine within normal limits. Neurology, cardiology and pulmonary is following. 12/29/2017 Patient remained on mechanical ventilation. Suspected patient having anoxic encephalopathy. Patient is not making any purposeful movements. Pupils are sluggishly reactive. Neurology and pulmonary and cardiology is following. Blood pressure is elevated and increase the dose of lisinopril and Norvasc was added. Chest x-ray continues to show stable bilateral consolidation and pleural effusion. Code status is DO NOT RESUSCITATE/DO NOT INTUBATE. Complete review of systems could not be obtained from the patient Objective - Vital Signs Vital signs: Vital Signs Temp 100.7 F H 12/29/17 08:00 Pulse 78 12/29/17 12:14 Resp 20 12/29/17 10:00 BP 121/65 12/29/17 10:00 Pulse Ox 93 L 12/29/17 10:00 Intake & Output 12/28/17 12/29/17 12/29/17 18:59 06:59 18:59 Intake Total 4894.613 1518.5 612.0 Output Total 540 517 170 Balance 1035.767 652.5 442.0 Weight 96.2 kg 94.4 kg 94.4 kg Intake: IV 1032.1 622.5 237.0 Amiodarone 450 mg In 133.6 Dextrose 5% in Water 250 ml @ 0.5 MG/MIN 16.66 mls /hr IV .Q15H1M [facility] Rx#: [id number] Magnesium Sulfate-D5w Pmx 200 1 gm In Dextrose/Water 1 100ml.bag @ 100 mls/hr IVPB Q1H [facility] Rx#: [id number] Normal Saline 230 200 Piperacillin-Tazobactam 3 62.5 62.5 .375 gm In Dextrose/Water 1 50ml.bag @ 12.5 mls/hr IVPB Q12HR [facility] Rx#: [id number] Piperacillin-Tazobactam 3 25.0 .375 gm In Dextrose/Water 1 50ml.bag @ 12.5 mls/hr IVPB Q8HR [facility] Rx#: [id number] Pressure Bag 36 30 12 Sodium Chloride 0.9% 500 600 300 ml @ 50 mls/hr IV .Q10H [facility] Rx#:[id number] Intake, IV Titration 323.667 0 Amount Amiodarone 450 mg In 250 Dextrose 5% in Water 250 ml @ 0.5 MG/MIN 16.66 mls /hr IV .Q15H1M [facility] Rx#: [id number] Propofol 1,000 mg In 73.667 0 Empty Bag 1 bag @ Titrate IV .Q0M [facility] Rx#: [id number] Tube Feeding 160 487 185 Other 60 60 190 Output: Urine 540 517 170 Other: Voiding Method Indwelling Catheter Indwelling Catheter Indwelling Catheter ABP, PAP, CO, CI - Last Documented Arterial Blood Pressure 168/71 - Exam Patient is lying in the bed comfortably, no acute distress . patient is currently sedated and intubated. Withdraws to painful stimuli.. HEENT: Normocephalic. Neck is supple. Pupils pinpoint. Nostrils clear. Oral cavity is moist. Ears reveal no drainage. Neck reveals no JVD, carotid bruits, or thyromegaly. CHEST EXAMINATION: Trachea is central. Symmetrical expansion. Bibasilar diminished air entry. Lung solis clear to auscultation and percussion. CARDIAC: Normal S1, S2 with no gallops. No murmurs ABDOMEN: Soft. Bowel sounds normal. No organomegaly. No abdominal bruits. Extremities: reveal no edema. No clubbing or cyanosis Neurologically. Patient is currently intubated. No gross focal neurological deficits noted Skin: No rash or skin lesions. Psychiatric: Could not be assessed Musculoskeletal: No joint swelling or deformity. - Labs CBC & Chem 7: 12/29/17 04:30 12/29/17 04:30 Labs: Abnormal Lab Results - Last 24 Hours (Table) 12/28/17 12/28/17 12/28/17 Range/Units 15:12 18:16 23:51 Plt Count (150-450) k/uL Lymphocytes # (1.0-4.8) k/uL ABG pH (7.35-7.45) ABG pO2 (83-108) mmHg ABG Total CO2 (19-24) mmol/L Sodium (137-145) mmol/L Chloride 109 H (98-107) mmol/L BUN (7-17) mg/dL Glucose 127 H (74-99) mg/dL POC Glucose (mg/dL) 103 H 135 H (75-99) mg/dL Calcium 8.3 L (8.4-10.2) mg/dL AST 110 H (14-36) U/L ALT 156 H (9-52) U/L Total Protein 5.5 L (6.3-8.2) g/dL Albumin 3.1 L (3.5-5.0) g/dL 12/29/17 12/29/17 12/29/17 Range/Units 04:30 04:30 05:47 Plt Count 107 L (150-450) k/uL Lymphocytes # 0.8 L (1.0-4.8) k/uL ABG pH (7.35-7.45) ABG pO2 (83-108) mmHg ABG Total CO2 (19-24) mmol/L Sodium 136 L (137-145) mmol/L Chloride 109 H (98-107) mmol/L BUN 18 H (7-17) mg/dL Glucose 145 H (74-99) mg/dL POC Glucose (mg/dL) 140 H (75-99) mg/dL Calcium (8.4-10.2) mg/dL AST (14-36) U/L ALT (9-52) U/L Total Protein (6.3-8.2) g/dL Albumin (3.5-5.0) g/dL 12/29/17 Range/Units 07:28 Plt Count (150-450) k/uL Lymphocytes # (1.0-4.8) k/uL ABG pH 7.46 H (7.35-7.45) ABG pO2 72 L (83-108) mmHg ABG Total CO2 26 H (19-24) mmol/L Sodium (137-145) mmol/L Chloride (98-107) mmol/L BUN (7-17) mg/dL Glucose (74-99) mg/dL POC Glucose (mg/dL) (75-99) mg/dL Calcium (8.4-10.2) mg/dL AST (14-36) U/L ALT (9-52) U/L Total Protein (6.3-8.2) g/dL Albumin (3.5-5.0) g/dL Microbiology - Last 24 Hours (Table) 12/28/17 00:55 Urine Culture - Preliminary Urine,Catheterized Assessment and Plan Assessment: Status post cardiac arrest and collapse with ventricular fibrillation as per EMS. Acute hypoxic respiratory failure secondary to cardiac arrest. Currently on mechanical ventilator. Nonischemic cardiomyopathy Suspect anoxic brain injury/encephalopathy Anion gap metabolic acidosis DVT prophylaxis Plan: Patient will be continued on telemetry monitoring. Status post cardiac catheterization with normal coronaries. Patient was continued on amiodarone drip. Changed to by mouth. Started on metoprolol and lisinopril. Added Norvasc. Patient is underwent neurological workup including CT head and EEG. 2 -D echocardiogram. Continue with empiric antibiotics. Will follow closely. Prognosis is poor. Further conditions based on the clinical course. Time with Patient: Greater than 30
[2017-12-30 02:46] VITALS: PULSE 0; RESP 0
[2017-12-30] MEDS ORDERED: LISINOPRIL 10 MG TAB PO SCH (09:00)
== END 2017-12-30 04:15 | disposition expired | DRG 286 ==
LOC: EC 13:48 → 6ICU 15:22
PROVIDERS: ADMIT Internal Medicine; ATTEND Internal Medicine
PROC: 4A023N7 Measurement of Cardiac Sampling and Pressure, Left Heart, Percutaneous Approach (ICD-10-PCS; 2017-12-27)
PROC: 5A1945Z Respiratory Ventilation, 24-96 Consecutive Hours (ICD-10-PCS; 2017-12-27)
PROC: B2111ZZ Fluoroscopy of Multiple Coronary Arteries using Low Osmolar Contrast (ICD-10-PCS; 2017-12-27)
PROC: B2151ZZ Fluoroscopy of Left Heart using Low Osmolar Contrast (ICD-10-PCS; 2017-12-27)
PROC: 03HY32Z Insertion of Monitoring Device into Upper Artery, Percutaneous Approach (ICD-10-PCS; 2017-12-27)
PROC: 0BH17EZ Insertion of Endotracheal Airway into Trachea, Via Natural or Artificial Opening (ICD-10-PCS; principal; 2017-12-27 14:30)
DX: I49.01 Ventricular fibrillation (principal); J96.01 Acute respiratory failure with hypoxia; R40.20 Unspecified coma; G93.1 Anoxic brain damage, not elsewhere classified; E87.2 Acidosis; R57.0 Cardiogenic shock; I42.9 Cardiomyopathy, unspecified; I44.7 Left bundle-branch block, unspecified; Z66 Do not resuscitate; R40.2431 Glasgow coma scale score 3-8, in the field [EMT or ambulance]; E87.6 Hypokalemia; Z90.49 Acquired absence of other specified parts of digestive tract; Z87.891 Personal history of nicotine dependence; Z82.49 Family history of ischemic heart disease and other diseases of the circulatory system
CPT/HCPCS: 31500; 36415; 36600; 70450; 71045; 80048; 80053; 81001; 82550; 82553; 82805; 83036; 83735; 84100; 84132; 84450; 84460; 84484; 85025; 85610; 85730; 87086; 92950; 93005; 93306; 93458; 94002; 94003; 94640; 95816; 96365; 99291